=== PATIENT | female | born 2000 | race Caucasian/White ===

== ENCOUNTER 2020-08-03 10:39 | Emergency (ER) | payer OTHER, SELFPAY ==
--- NOTE | ~2020-08-03 | CT_ITS ---
EXAMINATION: CT BRAIN AND CT CERVICAL SPINE WITHOUT CONTRAST. CLINICAL INFORMATION: Lightheadedness. Status post syncope with head injuries. COMPARISON: None TECHNIQUE: 5 mm thin axial and reformatted 2 mm thin sagittal and coronal images of brain were obtained without contrast. Axial 3 mm thin and reformatted 2 mm thin sagittal and coronal images of cervical spine were obtained without contrast. DLP [id number] FINDINGS: Brain: There is no acute intra-axial, extra-axial bleed, masses or midline shift. There is no acute infarction in evolution. The lateral ventricles are symmetrical in size and configuration without enlargement. The spears to white matter differentiation is maintained normal. There is no edema. Bone windows reveal no calvarial abnormality. Bilateral paranasal sinuses and mastoid air cells are well-aerated. Cervical spine: There is mild straightening of cervical lordosis. The vertebral heights, alignment and disc heights are normal. The craniovertebral junction and the C1-C2 alignment is normal. There is no visible acute fracture, dislocation or subluxation seen. No visible acute fracture, dislocation or subluxation seen. The prevertebral and paravertebral soft tissues are normal. The central airway is widely patent. The lung apices are clear. The thyroid lobes are symmetrical and normal. Bilateral submandibular and parotid glands are symmetrical and normal. CT/CT head/brain wo con IMPRESSION: No acute intracranial process seen. No acute fracture or dislocation cervical spine. Reversal of cervical lordosis likely spasm or positional.
--- NOTE | ~2020-08-03 | CT_ITS ---
EXAMINATION: CT BRAIN AND CT CERVICAL SPINE WITHOUT CONTRAST. CLINICAL INFORMATION: Lightheadedness. Status post syncope with head injuries. COMPARISON: None TECHNIQUE: 5 mm thin axial and reformatted 2 mm thin sagittal and coronal images of brain were obtained without contrast. Axial 3 mm thin and reformatted 2 mm thin sagittal and coronal images of cervical spine were obtained without contrast. DLP [id number] FINDINGS: Brain: There is no acute intra-axial, extra-axial bleed, masses or midline shift. There is no acute infarction in evolution. The lateral ventricles are symmetrical in size and configuration without enlargement. The spears to white matter differentiation is maintained normal. There is no edema. Bone windows reveal no calvarial abnormality. Bilateral paranasal sinuses and mastoid air cells are well-aerated. Cervical spine: There is mild straightening of cervical lordosis. The vertebral heights, alignment and disc heights are normal. The craniovertebral junction and the C1-C2 alignment is normal. There is no visible acute fracture, dislocation or subluxation seen. No visible acute fracture, dislocation or subluxation seen. The prevertebral and paravertebral soft tissues are normal. The central airway is widely patent. The lung apices are clear. The thyroid lobes are symmetrical and normal. Bilateral submandibular and parotid glands are symmetrical and normal. CT/CT cervical spine wo con IMPRESSION: No acute intracranial process seen. No acute fracture or dislocation cervical spine. Reversal of cervical lordosis likely spasm or positional.
[2020-08-03 10:53] VITALS: BP 144/100; PULSE 104; O2SAT 98
--- NOTE | 2020-08-03 10:55 | ECG_ITS ---
Test Reason : SYNCOPE Blood Pressure : / mmHG Vent. Rate : 085 BPM Atrial Rate : 085 BPM P-R Int : 124 ms QRS Dur : 088 ms QT Int : 380 ms P-R-T Axes : 041 000 003 degrees QTc Int : 452 ms Normal sinus rhythm Minimal voltage criteria for LVH, may be normal variant Borderline ECG No previous ECGs available Referred By: Brenda Nolasco Electronically Signed By:Alistair Pearson
[2020-08-03 10:58] VITALS: BP 129/78; PULSE 89; RESP 16; TEMP 36.6; O2SAT 97; BMI 51.8
[2020-08-03 11:03] LABS: Glucose, Whole Blood 89 mg/dL (60-115)
[2020-08-03] MEDS: 0.9 % Sodium Chloride 1,000 ML 999 ML IVCONT (11:05)
[2020-08-03 12:03] LABS: MANUAL DIFF FLAG NO
[2020-08-03 12:05] LABS: Basophils Percent Auto 0.7 % (0-2); Eosinophils Absolute Auto 0.1 X10*3/uL (0.0-0.4); Eosinophils Percent Auto 1.5 % (0-4); Hemoglobin 11.6 g/dl (12.0-16.0); Imm Gran Abs Auto 0.01 X10*3/uL (0.00-0.03); Imm Gran Pct Auto 0.2 % (0.0-0.4); Lymphocytes Absolute Auto 1.2 X10*3/uL (1.2-4.9); Lymphocytes Percent Auto 19.5 % (20-40); Mean Corpuscular HGB Conc 32.2 g/dl (31.0-35.0); Mean Corpuscular Volume 77.6 fL (80-98); Mean Platelet Volume 10.1 fL (9.4-12.3); Monocytes Absolute Auto 0.3 X10*3/uL (0.1-1.2); Monocytes Percent Auto 5.2 % (2-11); Neutrophils Absolute Auto 4.5 X10*3/uL (2.0-8.3); Neutrophils Percent Auto 72.9 % (45-73); Platelet Count 287 X10*3/uL (160-400); Red Blood Count 4.64 X10*6/uL (4.20-5.50); Red Cell Distribution Width 14.4 % (11.0-16.0); White Blood Count 6.2 X10*3/uL (4.8-10.8)
[2020-08-03 12:11] LABS: INTERNATIONAL NORM RATIO 1.2 (0.9-1.1); Prothrombin Time 13.7 SEC (10.8-13.0)
[2020-08-03 12:14] LABS: Partial Thromboplastin Time 34.7 SEC (24.1-38.0)
[2020-08-03 12:29] LABS: Ethanol < 10 mg/dL
[2020-08-03 12:36] LABS: Alanine Aminotransferase 14 U/L (0-31); Alkaline Phosphatase 72 U/L (39-117); Anion Gap 10 (12-20); Aspartate Amino Transferase 13 U/L (5-31); Bilirubin Total 0.4 mg/dL (0.0-1.0); Blood Urea Nitrogen 6 mg/dL (9-16); Calcium 8.8 mg/dL (8.4-10.2); Carbon Dioxide 25 mmol/L (22-29); Chloride 108 mmol/L (96-108); Creatinine Clr Calc Pharmacy 169.6; Estimated Glomerular Filt Rate > 60; Glucose Random 84 mg/dL (60-115); Magnesium 1.9 mg/dL (1.6-2.6); Potassium 3.9 mmol/L (3.3-5.1); Sodium 139 mmol/L (135-145); Total Protein 6.8 g/dL (6.5-8.0)
[2020-08-03 12:39] LABS: Troponin-I High Sensitivity < 3.5 ng/L (<3.5-17.0)
[2020-08-03 12:40] LABS: HCG Quantitative < 2 mIU/mL; Influenza A PCR NEGATIVE (Negative); Influenza B PCR NEGATIVE (Negative); Resp Syncy Virus RNA Qual PCR NEGATIVE (Negative); SARS COV2 PCR INHOUSE NEGATIVE (Negative)
--- NOTE | 2020-08-03 12:48 | ED.SYNCOPE ---
HPI - Syncope General Chief Complaint: Syncope Stated Complaint: BAKER,CHEST TIGHTNESS Time Seen by Provider: 08/03/20 10:54 Source: patient and EMS Mode of arrival: EMS Limitations: no limitations History of Present Illness HPI narrative: 19-year-old female with a past medical history of migraine headaches presenting to the ED via EMS with C-collar in place after she had a unwitnessed syncopal episode while at home prior to arrival. Reports that when she woke up she felt lightheadedness/a headache to the frontal aspect of her head and she tried to pull through and continue her day although when she was about to walk out the door to go to work she passed out. She reports she is unsure how long she passed out although it was not witnessed. Then she reports she was able to crawl to her roommate store her roommate open his door and called EMS at that time. She reports that she usually leaves her house around 839. She reports that she continues to have the frontal headache/lightheadedness. Reports associated anterior midsternal chest pain. Reports neck pain. Denies any recent prior head injury, changes in vision, nausea/vomiting, shortness of breath, cough, dyspnea on exertion, orthopnea, lower extremity edema, palpitations, abdominal pain, dysuria, hematuria, black or bloody stools, back pain, recent illness, recent travel, sick contacts or any other symptoms complaints or concerns at this time. MD complaint: loss of consciousness and collapsed Onset (ago): minute(s) Prodromal symptoms: headache and lightheaded Witnessed: No Context: during exertion Injuries sustained associated with event: neck and head Current symptoms: headache and chest pain Treatments prior to arrival: none Related Data Allergies Allergy/AdvReac Type Severity Reaction Status Date / Time No Known Allergies Allergy Verified 08/03/20 10:54 Review of Systems Review of Systems: Constitutional : No Fever, No Chills, No Night Sweats, No Fatigue, No Malaise ENT/Mouth : No Ear Pain, No Nasal Congestion, No Sinus Pain, No sore throat, No Rhinorrhea Eyes: No Eye Pain, No Swelling, No Redness, No Foreign Body, No Discharge, No Vision Changes Cardiovascular : Positive Chest Pain, No SOB, No Dyspnea on Exertion, No Orthopnea, No Palpitations Respiratory : No Cough, No Sputum, No Wheezing, No Dyspnea Gastrointestinal : No Nausea, No Vomiting, No Diarrhea, No Constipation, No abdominal Pain, No Hematochezia, No Melena Genitourinary : No Dysuria, No Urinary Frequency, No Urinary Incontinence, No Urgency, No Flank Pain Musculoskeletal : No joint pain, No Myalgias Skin : No lacerations Neuro : Positive lightheadedness/headache/syncopal episode, No Focal weakness, no general weakness, No Numbness, No Paresthesias Yes all other systems are reviewed and are negative [facility] Past Medical History Attestation statement: The following information was validated with the patient. Medical History Migraine Social History Social History Advance Directives: Yes Advance Directives Information Provided: No Advance Directives on File: No Patient : No Physical Exam Vital Signs: Vital Signs: Last Vital Signs Temp 98 F 08/03/20 10:58 Pulse 89 08/03/20 10:58 Resp 16 08/03/20 10:58 BP 129/78 08/03/20 10:58 Pulse Ox 97 08/03/20 10:58 Body Mass Index 51.8 Vital signs have been reviewed as normal and appeared to be correct. Blood pressure normal. Heart rate normal. Respiration rate normal. Temperature normal. Oxygen saturation normal. Appearance: Alert. Oriented X3. No acute distress. Head: Normal external exam. Normocephalic. Atraumatic. Able to rotate head bilaterally. Eyes: PERRLA. EOMI. No nystagmus noted. Conjunctiva and sclera normal. Eyelids normal. Corneal reflex normal. ENT: EAC normal. TM's Normal. Hearing normal. Pharynx normal. Uvula midline. tongue midline. Moist mucous membranes. No trismus noted. No drooling noted. No muffled voice noted. No nystagmus noted. Neck: Normal inspection. Neck supple. FROM. No adenopathy. Trachea midline. Thyroid Normal. No meningeal signs. No neck mass noted. CVS: Normal heart rate and rhythm. Heart sound normal. No murmurs noted. Pulses normal throughout. Respiratory: No respiratory distress. Painless inspiration. Breath sounds normal. No wheezes/rales/rhonchi noted. Chest nontender. No accessory muscle usage noted or decreased air movement noted. Abdomen: Soft and nontender. Bowel sounds normal in all 4 quadrants. No distention noted. No organomegaly noted. No visible injury noted. Back: No CVA tenderness. Full range of motion noted. Skin: Skin warm and dry. Normal skin color. Normal skin turgor. No rashes/lesions/lacerations noted. Extremities: No lower extremity edema. Extremities exhibit normal range of motion. Extremities nontender. Able to shrug shoulders bilaterally and keep up against resistance. Neuro: Oriented X 3. No motor deficit. No sensory deficit. Reflexes normal. Moving all extremities. No focal motor deficits. Cranial nerves II-XI intact bilaterally. Facial strength normal. Normal cognition. Speech normal. Gait normal. Strength 5/5 throughout. No pronator drift. No tremor noted. No fasciculations noted. No rigidity noted. Muscle tone normal throughout. No asterixis noted. [id number] test normal. Heel to byrd test normal. Tandem gait normal. Does not sway with eyes open. Romberg test negative. Rapid alternating movement upper extremity normal. Rapid alternating movement lower extremity normal. Hand drop from overhead Misses face. NIHSS score 0. Course Course Course Narrative: 14:15pm - labs reviewed and patient mild anemia otherwise all other labs are within normal limits. Serum quant negative for . Patient negative for EtOH. Negative for COVID/RSV/flu. CT scan of brain/cervical spine within normal limits no acute processes are noted. EKG normal sinus rhythm no acute ischemic changes were noted. - I removed the C-collar and they came to do the chest x-ray although patient refused she reports she does not want any further evaluation or treatment she also reported she does not want to be admitted. She reports that she feels worse she will come back that she believes she might have had a panic attack with a migraine headache that she has had this in the past. Mother at bedside. Therefore will DC home with instructions to return if any new or worsening symptoms follow-up with Neurology and to follow-up with PCP. Patient understands agrees with this plan. MDM - Syncope MDM Narrative Medical decision making narrative: 10:55am - 19-year-old female with a past medical history of migraine headaches presenting to the ED via EMS with C-collar in place after she had a unwitnessed syncopal episode while at home prior to arrival. Reports associated frontal headache/lightheadedness and anterior chest pain. - On exam patient is alert and oriented x3. Not in any acute distress. Vital signs are stable within normal limits. No focal neuro deficits are noted. NIH SS score 0. Not a tPA candidate due to non disabling symptoms. Lungs clear to auscultation. CV RRR. Abdomen soft and nontender. Plan: Labs, CT scan of brain/cervical spine, chest x-ray, EKG, point of care, orthostatic vitals, UA provide a L of IV fluids and re-evaluate. Medical Records Attestation: I reviewed the patient's medical records. Lab Data Attestation: I reviewed the patient's lab results. Result diagrams: 08/03/20 11:55 08/03/20 11:55 Labs: Lab Results 08/03/20 08/03/20 08/03/20 Range/Units 11:00 11:55 11:55 WBC 6.2 (4.8-10.8) X10*3/uL RBC 4.64 (4.20-5.50) X10*6/uL Hgb 11.6 L (12.0-16.0) g/dl Hct 36.0 L (37-47) % MCV 77.6 L (80-98) fL MCH 25.0 L (27.0-33.0) pg MCHC 32.2 (31.0-35.0) g/dl RDW 14.4 (11.0-16.0) % Plt Count 287 (160-400) X10*3/uL MPV 10.1 (9.4-12.3) fL Immature Gran % (Auto) 0.2 (0.0-0.4) % Neut % (Auto) 72.9 (45-73) % Lymph % (Auto) 19.5 L (20-40) % [place] % (Auto) 5.2 (2-11) % Eos % (Auto) 1.5 (0-4) % Baso % (Auto) 0.7 (0-2) % Lymph # (Auto) 1.2 (1.2-4.9) X10*3/uL [place] # (Auto) 0.3 (0.1-1.2) X10*3/uL Eos # (Auto) 0.1 (0.0-0.4) X10*3/uL Baso # (Auto) 0.0 (0.0-0.2) X10*3/uL Abs Immat Gran (auto) 0.01 (0.00-0.03) X10*3/uL Absolute Neuts (auto) 4.5 (2.0-8.3) X10*3/uL Absolute Nucleated RBC 0.000 (0.0-0.012) X10*3/uL Nucleated RBC % (auto) 0.0 (0.0-0.2) /100WBC PT (10.8-13.0) SEC INR (0.9-1.1) APTT (24.1-38.0) SEC Sodium (135-145) mmol/L Potassium (3.3-5.1) mmol/L Chloride (96-108) mmol/L Carbon Dioxide (22-29) mmol/L Anion Gap (12-20) BUN (9-16) mg/dL Creatinine (0.5-1.4) mg/dL Estim Creat Clear Calc Estimated GFR POC Glucose 89 (60-115) mg/dL Random Glucose (60-115) mg/dL Calcium (8.4-10.2) mg/dL Magnesium (1.6-2.6) mg/dL Total Bilirubin (0.0-1.0) mg/dL AST (5-31) U/L ALT (0-31) U/L Alkaline Phosphatase (39-117) U/L Troponin I High Sens (<3.5-17.0) ng/L Total Protein (6.5-8.0) g/dL Albumin (3.5-5.0) g/dL TSH 0.61 (0.32-4.0) uIU/mL Beta HCG, Quant mIU/mL Ethyl Alcohol mg/dL Coronavirus (PCR) (Negative) Influenza Type A (PCR) (Negative) Influenza Type B (PCR) (Negative) RSV RNA Qual (PCR) (Negative) 08/03/20 08/03/20 08/03/20 Range/Units 11:55 11:55 11:55 WBC (4.8-10.8) X10*3/uL RBC (4.20-5.50) X10*6/uL Hgb (12.0-16.0) g/dl Hct (37-47) % MCV (80-98) fL MCH (27.0-33.0) pg MCHC (31.0-35.0) g/dl RDW (11.0-16.0) % Plt Count (160-400) X10*3/uL MPV (9.4-12.3) fL Immature Gran % (Auto) (0.0-0.4) % Neut % (Auto) (45-73) % Lymph % (Auto) (20-40) % [place] % (Auto) (2-11) % Eos % (Auto) (0-4) % Baso % (Auto) (0-2) % Lymph # (Auto) (1.2-4.9) X10*3/uL [place] # (Auto) (0.1-1.2) X10*3/uL Eos # (Auto) (0.0-0.4) X10*3/uL Baso # (Auto) (0.0-0.2) X10*3/uL Abs Immat Gran (auto) (0.00-0.03) X10*3/uL Absolute Neuts (auto) (2.0-8.3) X10*3/uL Absolute Nucleated RBC (0.0-0.012) X10*3/uL Nucleated RBC % (auto) (0.0-0.2) /100WBC PT 13.7 H (10.8-13.0) SEC INR 1.2 H (0.9-1.1) APTT 34.7 (24.1-38.0) SEC Sodium 139 (135-145) mmol/L Potassium 3.9 (3.3-5.1) mmol/L Chloride 108 (96-108) mmol/L Carbon Dioxide 25 (22-29) mmol/L Anion Gap 10 L (12-20) BUN 6 L (9-16) mg/dL Creatinine 0.65 (0.5-1.4) mg/dL Estim Creat Clear Calc 169.6 Estimated GFR > 60 POC Glucose (60-115) mg/dL Random Glucose 84 (60-115) mg/dL Calcium 8.8 (8.4-10.2) mg/dL Magnesium 1.9 (1.6-2.6) mg/dL Total Bilirubin 0.4 (0.0-1.0) mg/dL AST 13 (5-31) U/L ALT 14 (0-31) U/L Alkaline Phosphatase 72 (39-117) U/L Troponin I High Sens < 3.5 (<3.5-17.0) ng/L Total Protein 6.8 (6.5-8.0) g/dL Albumin 4.0 (3.5-5.0) g/dL TSH (0.32-4.0) uIU/mL Beta HCG, Quant < 2 mIU/mL Ethyl Alcohol mg/dL Coronavirus (PCR) (Negative) Influenza Type A (PCR) (Negative) Influenza Type B (PCR) (Negative) RSV RNA Qual (PCR) (Negative) 08/03/20 08/03/20 Range/Units 11:55 11:55 WBC (4.8-10.8) X10*3/uL RBC (4.20-5.50) X10*6/uL Hgb (12.0-16.0) g/dl Hct (37-47) % MCV (80-98) fL MCH (27.0-33.0) pg MCHC (31.0-35.0) g/dl RDW (11.0-16.0) % Plt Count (160-400) X10*3/uL MPV (9.4-12.3) fL Immature Gran % (Auto) (0.0-0.4) % Neut % (Auto) (45-73) % Lymph % (Auto) (20-40) % [place] % (Auto) (2-11) % Eos % (Auto) (0-4) % Baso % (Auto) (0-2) % Lymph # (Auto) (1.2-4.9) X10*3/uL [place] # (Auto) (0.1-1.2) X10*3/uL Eos # (Auto) (0.0-0.4) X10*3/uL Baso # (Auto) (0.0-0.2) X10*3/uL Abs Immat Gran (auto) (0.00-0.03) X10*3/uL Absolute Neuts (auto) (2.0-8.3) X10*3/uL Absolute Nucleated RBC (0.0-0.012) X10*3/uL Nucleated RBC % (auto) (0.0-0.2) /100WBC PT (10.8-13.0) SEC INR (0.9-1.1) APTT (24.1-38.0) SEC Sodium (135-145) mmol/L Potassium (3.3-5.1) mmol/L Chloride (96-108) mmol/L Carbon Dioxide (22-29) mmol/L Anion Gap (12-20) BUN (9-16) mg/dL Creatinine (0.5-1.4) mg/dL Estim Creat Clear Calc Estimated GFR POC Glucose (60-115) mg/dL Random Glucose (60-115) mg/dL Calcium (8.4-10.2) mg/dL Magnesium (1.6-2.6) mg/dL Total Bilirubin (0.0-1.0) mg/dL AST (5-31) U/L ALT (0-31) U/L Alkaline Phosphatase (39-117) U/L Troponin I High Sens (<3.5-17.0) ng/L Total Protein (6.5-8.0) g/dL Albumin (3.5-5.0) g/dL TSH (0.32-4.0) uIU/mL Beta HCG, Quant mIU/mL Ethyl Alcohol < 10 mg/dL Coronavirus (PCR) NEGATIVE (Negative) Influenza Type A (PCR) NEGATIVE (Negative) Influenza Type B (PCR) NEGATIVE (Negative) RSV RNA Qual (PCR) NEGATIVE (Negative) Imaging Data CT scan of brain/cervical spine: Attestation: I personally reviewed and interpreted this imaging study as follows: Radiologist's impression: FINDINGS: Brain: There is no acute intra-axial, extra-axial bleed, masses or midline shift. There is no acute infarction in evolution. The lateral ventricles are symmetrical in size and configuration without enlargement. The spears to white matter differentiation is maintained normal. There is no edema. Bone windows reveal no calvarial abnormality. Bilateral paranasal sinuses and mastoid air cells are well-aerated. Cervical spine: There is mild straightening of cervical lordosis. The vertebral heights, alignment and disc heights are normal. The craniovertebral junction and the C1-C2 alignment is normal. There is no visible acute fracture, dislocation or subluxation seen. No visible acute fracture, dislocation or subluxation seen. The prevertebral and paravertebral soft tissues are normal. The central airway is widely patent. The lung apices are clear. The thyroid lobes are symmetrical and normal. Bilateral submandibular and parotid glands are symmetrical and normal. CT/CT head/brain wo con IMPRESSION: No acute intracranial process seen. No acute fracture or dislocation cervical spine. Reversal of cervical lordosis likely spasm or positional. ECG Data Attestation: I personally reviewed and interpreted this ECG as follows: ECG interpretation date: 08/03/20 ECG interpretation time: 11:07 Interpretation: Normal sinus rhythm with ventricular rate of 85 with minimal voltage criteria for LVH normal QRS normal QT/QTC interval. No acute ischemic changes are noted. No prior EKGs in our system to compare to at this time. Critical Care Time Critical Care Time Critical Care Time: Yes Total Critical Care Time: 60 Attestation: I personally attest to this time spent taking care of the patient Discharge Plan Discharge Clinical Impression: Migraine, Episode of syncope Patient Disposition: Home, Self-Care Instructions: Syncope (ED) Referrals: Cedrick Lima MD [Physician] - 2 days Stand Alone Forms: Work/School Release Print Language: [place]
[2020-08-03 12:56] LABS: Thyroid Stimulating Hormone 0.61 uIU/mL (0.32-4.0)
== END 2020-08-03 14:32 | disposition home or self-care (01) ==
PROVIDERS: Physician Assistant Medical; Emergency Provider Emergency Medicine
DX: G43.909 Migraine, unspecified, not intractable, without status migrainosus (principal); R55 Syncope and collapse; Z20.822 Contact with and (suspected) exposure to COVID-19; D64.9 Anemia, unspecified; R07.9 Chest pain, unspecified
CPT/HCPCS: 0241U; 36415; 70450; 72125; 80053; 82077; 82947; 83735; 84443; 84484; 84702; 85025; 85610; 85730; 93005; 96360; 96361; 99283; 99291

== ENCOUNTER 2021-08-18 23:17 | Emergency (ER) | payer OTHER, SELFPAY ==
--- NOTE | ~2021-08-18 | CT_ITS ---
EXAMINATION: CT CERVICAL SPINE WITHOUT CONTRAST CLINICAL INFORMATION: Swelling cervicothoracic junction COMPARISON: 08/03/2020 TECHNIQUE: Multidetector CT imaging of the cervical spine was performed without the use of intravenous contrast. Multiplanar reformats created on an independent workstation were reviewed. This CT examination was performed using dose optimization techniques as appropriate, variously including the following: *Automated exposure control *Adjustment of mA and/or kV according to patient size (this includes techniques or standardized protocols for targeted exams where dose is matched to indication/reason for exam; i.e. extremities or head) *Use of iterative reconstruction technique DLP: 1343 mGy-cm. FINDINGS: Atlantooccipital alignment is maintained. The vertebral bodies and posterior elements align normally, apart from mild straightening of the cervical spine which may be related to positioning or muscle spasm. No acute fracture or subluxation. Vertebral body heights and intervertebral disc spaces are preserved. No significant degenerative changes are appreciated. No central canal or foraminal narrowing. The cervicomedullary junction and spinal cord are grossly unremarkable. The paraspinal soft tissues are unremarkable. The imaged lung apices are clear. CT/CT cervical spine wo con IMPRESSION: No fractures or subluxations. Normal appearance of the cervical spine
[2021-08-19 00:23] VITALS: BP 132/73; PULSE 82; RESP 16; TEMP 37; O2SAT 98; BMI 52.1
--- NOTE | 2021-08-19 01:17 | ED_ITS ---
HPI - General Adult General Chief complaint: Neck Pain/Injury Stated complaint: painful & tingling lump on back of neck Time Seen by Provider: 08/19/21 01:07 Source: patient History of Present Illness [facility] narrative: This is a 20-year-old female who was noted in lump on the back of her neck for some weeks. The patient saw her primary care physician who stated nothing to be worried about. Patient has more recently had increasing discomfort to the area and notes tingling upper neck and to her upper back. She denies any fever. She sometimes has headaches. She denies any chest pain or shortness of breath. She denies any use of prednisone or other steroid medicines Related Data Allergies Allergy/AdvReac Type Severity Reaction Status Date / Time No Known Allergies Allergy Verified 08/19/21 00:26 Review of Systems Review of Systems: As per [facility] Past Medical History Medical History Migraine Social History Social History Advance Directives: No Advance Directives Information Provided: Yes Physical Exam ED Vital Signs: Vital Signs - 24 hr 08/19/21 00:23 08/19/21 02:38 Temperature 98.6 F Pulse Rate 82 82 Respiratory Rate 16 20 Blood Pressure 132/73 129/74 Pulse Oximetry 98 97 Oxygen Delivery Method Room Air Room Air BMI result Body Mass Index 52.1 Const Other: Moderately obese Neck Other: Base of the neck at the junction between the cervical and thoracic spine with soft tissue prominence in the midline. No erythema or induration. Area seems to be tender. By palpation, feels like a possible lipoma, versus prominent fat and somewhat obese patient. Medical Decision Making [facility] Narrative Medical decision making narrative: Obese 20-year-old female, felt a ?lump? at the base of her neck posteriorly. Distinct area of fatty prominence evident however this appeared likely due to obesity, did not appear to be a lipoma or mass. No clinical evidence of abscess. Patient noted paresthesias associated with this ?lump?. Though I did not have any high suspicion for concerning pathology, cervical spine CT to examine the soft tissues posteriorly down to hip her thoracic spine was done and showed no concerning findings. The patient was reassured. Imaging Data CT cervical spine: Radiologist's impression: IMPRESSION: No fractures or subluxations. Normal appearance of the cervical spine? Discharge Plan Discharge Clinical Impression: Neck pain, Paresthesias Patient Disposition: Home, Self-Care Instructions: Paresthesia (ED), Neck Pain (ED) Additional Instructions: Follow-up with her primary care physician. I did not find any concerning mass or swelling in the area of concern on exam, and CT scan did not show any concerning findings. Discharge Date/Time: 08/19/21 02:59
[2021-08-19 02:38] VITALS: BP 129/74; PULSE 82; RESP 20; O2SAT 97
== END 2021-08-19 02:59 | disposition home or self-care (01) ==
PROVIDERS: Emergency Provider Emergency Medicine; PCP Internal Medicine
DX: M54.2 Cervicalgia (principal); R20.2 Paresthesia of skin
CPT/HCPCS: 72125; 99282; 99284

== ENCOUNTER 2022-01-20 20:55 | Emergency (ER) | payer OTHER, SELFPAY ==
[2022-01-20 20:57] VITALS: BP 137/64; PULSE 98; RESP 18; TEMP 36.4; O2SAT 100; BMI 47.5
--- NOTE | 2022-01-21 00:15 | PC.NURSE ---
Pt stated she felt fine after PO challenge and that she needed to leave as she was dependent on a car ride. This nurse assured her that the provider would be coming back to follow up, but pt stated she couldn't wait much longer. Upon returning to pt's rm, it was clear that pt had left without provider being able to follow up. To be sure provider was found and confirmed that pt was no longer in the room when he went to follow up.
--- NOTE | 2022-01-21 00:44 | ED.GENADULT ---
HPI - General Adult General Chief complaint: General Medical Stated complaint: chest pain, food stuck Time Seen by Provider: 01/20/22 22:50 Source: patient Mode of arrival: ambulatory Limitations: no limitations History of Present Illness HPI narrative: 21-year-old female presents to ED for sensation of food stuck in the throat. Patient states history of food stuck in her throat in the past has been evaluated by Gastroenterology with the endoscope. Patient states she ate some chicken which she swallowed fine then she had large rice and then started having choking sensation. Patient states when she swallows she feels something stuck in her throat goint her chest. Patient states she was able to swallow much food after. Patient the past states when this happened she drinks water and improved but this time it did not happen. Patient denies any chest pain or shortness of breath Related Data Allergies Allergy/AdvReac Type Severity Reaction Status Date / Time No Known Allergies Allergy Verified 08/19/21 00:26 Review of Systems Review of Systems: Sensation of right/food stuck in throat Yes all other systems are reviewed and are negative PMFSH Past Medical History Medical History Migraine Social History Social History Advance Directives: No Advance Directives Information Provided: No Physical Exam ED Vital Signs: Vital Signs - 24 hr 01/20/22 20:57 Temperature 97.5 F Pulse Rate 98 Respiratory Rate 18 Blood Pressure 137/64 Pulse Oximetry 100 Oxygen Delivery Method Room Air BMI result Body Mass Index 47.5 Const General: cooperative, healthy appearing, comfortable, no acute distress, well developed, alert, awake and Physically active Orientation/consciousness: oriented to time and patient oriented x3 HENMT Other: Patient speaking in full sentences. Negative for any drooling. Negative for vomiting. Negative for change in voice Head: Yes normal to inspection, Yes No palpable skull fracture present, Yes normocephalic, Yes atraumatic and No abrasion Throat: Yes posterior oropharynx normal, Yes tonsils normal and Yes uvula midline Eyes General: appearance normal, both eyes and all related structures Neck Neck: Yes normal visual inspection, Yes full ROM, Yes no lymphadenopathy, Yes no meningeal signs, Yes trachea midline, Yes supple, No anterior neck swelling and No tender Chest Chest palpation & inspection: normal inspection of the chest and normal palpation of entire chest wall Resp Effort & Inspection: normal respiratory effort and able to speak in complete sentences Auscultation: clear to auscultation bilaterally Cardio Jugular venous distension: no JVD Heart sounds: S1 normal heart sound present and S2 normal heart sound present GI Inspection: Yes normal to inspection and No abdominal wall ecchymosis Palpation (GI): Soft to palpation, not firm, nontender, no guarding and not rigid General: No CVA tenderness and Yes no CVA tenderness Back/Spine/Pelvis Back: no CVA tenderness, No CVA tenderness and No back tenderness Skin General skin exam: no rashes or lesions noted and elasticity normal Neuro General: oriented to time, patient oriented x3, gait normal, no meningeal signs and CN's II-XI intact bilaterally Cranial nerves: Yes CN's II-XII intact bilaterally Extrem General: Yes normal to inspection and Yes full ROM Psych Appearance: grossly normal, well kempt and not disheveled Course Course Course Narrative: Patient well-appearing. Patient speaking in full sentences. Patient not using accessory muscles. Will do p.o. challenge. Patient given crackers and 2 bottles of gin drip Reevaluation(s) Reevaluation #1: Nurse Jocelyn informed me that patient eloped from the ER. She states patient informed her she feels better and patient drank 2 cans of chilango rale and 3 bags of crackers. Time: 00:53 indegestion Discharge Plan Discharge Clinical Impression: Indigestion Patient Disposition: Elopement Instructions: Indigestion (ED)
== END 2022-01-21 02:26 | disposition left against medical advice (07) ==
PROVIDERS: Emergency Provider Internal Medicine
DX: R07.89 Other chest pain (principal); R09.89 Other specified symptoms and signs involving the circulatory and respiratory systems
CPT/HCPCS: 99282; 99283

== ENCOUNTER 2022-06-15 11:40 | Emergency (ER) | payer OTHER, SELFPAY ==
[2022-06-15] VITALS (7 sets, daily range): BP systolic 107–151; BP diastolic 66–94; PULSE 107–130; RESP 15–18; TEMP 37.2–39.1; O2SAT 97–100; BMI 47.8
--- NOTE | ~2022-06-15 | XR_ITS ---
EXAMINATION: XR CHEST CLINICAL INFORMATION: Fever COMPARISON: None available. TECHNIQUE: Frontal view of the chest was obtained. FINDINGS: Mild right basilar opacity may represent a small area of atelectasis or infiltrate. Left lung is clear. There is no failure. No effusion. The cardiac silhouette is within normal limits. XR/XR chest 1V IMPRESSION: Mild right basilar opacities
--- NOTE | ~2022-06-15 | CT_ITS ---
EXAM: CT HEAD WITHOUT CONTRAST CT CERVICAL SPINE INDICATION: Reason for Exam syncope head pain TECHNIQUE: A noncontrast CT scan was performed from the skull base to the vertex. A noncontrast CT scan of the cervical spine was performed from the base of the skull through T1 at 2.5 mm and 0.625 mm collimation. Coronal and sagittal reformats were obtained at the acquisition workstation. This CT examination was performed using dose optimization techniques as appropriate, variously including the following: * Automated exposure control * Adjustment of mA and/or kV according to patient size (this includes techniques or standardized protocols for targeted exams where dose is matched to indication/reason for exam; i.e. extremities or head) * Use of iterative reconstruction technique Dose length product is 1520 mGy-cm. COMPARISON: CT cervical spine 08/19/[address] head 08/03/2020 FINDINGS: Head: There is no evidence of acute intracranial hemorrhage or territorial infarction. No abnormal mass effect or midline shift is seen. Moon to white matter differentiation is well preserved. No extra-axial fluid collections are identified. The ventricles are normal in size. No abnormal attenuation in the brain parenchyma. No acute calvarial fracture.. Prominent opacification right maxillary sinus. Partial opacification ethmoid, left maxillary sinuses. Mastoid air cells are well-aerated. Cervical Spine: The atlantooccipital and atlantoaxial articulations remain well aligned. Straightening of the normal cervical lordosis. Otherwise, there is anatomic alignment of the vertebral bodies and posterior elements. No visible acute fracture or subluxation is seen.. The vertebral body heights are maintained. Disc spaces relatively maintained. No prevertebral soft tissue swelling. The paraspinal soft tissues are unremarkable. No suspicious thyroid findings.. The visualized lung apices are clear. CT/CT cervical spine wo IV con IMPRESSION: No CT evidence of acute intracranial hemorrhage or edematous territorial infarction. No visible acute fracture or subluxation the cervical spine..
--- NOTE | 2022-06-15 11:48 | ECG_ITS ---
Test Reason : CHEST PAIN Blood Pressure : / mmHG Vent. Rate : 107 BPM Atrial Rate : 107 BPM P-R Int : 140 ms QRS Dur : 078 ms QT Int : 316 ms P-R-T Axes : 030 -02 -12 degrees QTc Int : 421 ms Sinus tachycardia Minimal voltage criteria for LVH, may be normal variant ( R in aVL ) Nonspecific T wave abnormality Abnormal ECG When compared with ECG of 03-AUG-2020 11:07, No significant change was found Referred By: Jones David Electronically Signed By:LISETTE SPARROW MD
--- NOTE | 2022-06-15 11:50 | ED.SYNCOPE ---
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 MD complaint: loss of consciousness Onset (ago): hour(s) (1) Prodromal symptoms: nausea/vomiting Witnessed: No Context: at rest Related Data Allergies Allergy/AdvReac Type Severity Reaction Status Date / Time No Known Allergies Allergy Verified 08/19/21 00:26 Review of Systems Constitutional: Constitutional: Reports no additional constitutional complaints ENT: Reports system reviewed and no additional complaints, except as documented Cardiovascular: Cardiovascular: Reports no additional cardiovascular complaints Respiratory: Respiratory: Reports no additional respiratory complaints [facility] Past Medical History [facility] Narrative: denies Medical History Migraine Social History Social History Advance Directives: No Advance Directives Information Provided: Yes Physical Exam Vital Signs: Vital Signs: Last Vital Signs Temp 99.6 F 06/15/22 16:09 Pulse 130 H 06/15/22 16:09 Resp 15 06/15/22 16:09 BP 132/87 06/15/22 16:09 Pulse Ox 97 06/15/22 16:09 O2 Del Method Room Air 06/15/22 16:09 BMI result Body Mass Index 47.8 Const: General: cooperative Nutritional Appearance: well nourished HEENT: Head: Yes normal to inspection General nose exam: Normal external nose present Face and sinus: Yes normal facial exam Mouth: Normal oral and palatal mucosa present Throat: Yes posterior oropharynx normal Neck: Neck: Yes normal visual inspection Chest: Chest palpation & inspection: normal inspection of the chest Resp: Effort & Inspection: normal respiratory effort Auscultation: clear to auscultation bilaterally Cardio: Jugular venous distension: no JVD Rate: regular rate Rhythm: regular rhythm GI: Inspection: Yes normal to inspection Palpation (GI): Soft to palpation Auscultation: normal bowel sounds Skin: General skin exam: no rashes or lesions noted Lesions: no lesions Rashes: no rashes Extrem: General: Yes normal to inspection, Yes full ROM and Yes capillary refill normal Course Reevaluation(s) Reevaluation #1: feeling dizzy laurie give fluids Time: 15:55 Reevaluation #2: Signed out to Dr Garcia off shift now, Time: 16:57 Medications Administered Generic Name Dose Route Start Last Admin Trade Name Freq PRN Reason Stop Dose Admin Sodium Chloride 1,000 mls @ 999 mls/hr 06/15/22 16:00 06/15/22 16:13 Ns IVCONT 06/15/22 17:00 999 mls/hr .Q1H1M ILDA Administration Discontinued Medications Generic Name Dose Route Start Last Admin Trade Name Freq PRN Reason Stop Dose Admin Sodium Chloride 1,000 mls @ 999 mls/hr 06/15/22 12:15 06/15/22 16:14 Ns IVCONT 06/15/22 13:15 Infused .Q1H1M ILDA Infusion Ibuprofen 800 mg 06/15/22 16:19 06/15/22 16:23 Ibuprofen 800 Mg Tablet PO 06/15/22 16:20 800 mg ONCE ONE Administration Lorazepam 0.5 mg 06/15/22 16:20 06/15/22 16:24 Lorazepam 0.5 Mg Tablet PO 06/15/22 16:21 0.5 mg ONCE ONE Administration Medical Decision Making Medical Decision Making [facility] Narrative: Patient presented with syncopal episode with going to do EKG labs and reassess Differential Diagnosis Differential Diagnoses: The differential diagnosis associated with the presentation includes Vasovagal episode the/arrhythmia Admission/Observation Consideration of admission/observation: Escalation of care including admission/observation considered Lab Data [facility] Lab Attestation statement: I reviewed the patient's lab results. 06/15/22 12:44 06/15/22 12:44 Labs: Lab Results 06/15/22 06/15/22 06/15/22 Range/Units 12:41 12:41 12:44 WBC 9.5 (4.8-10.8) X10*3/uL RBC 4.53 (4.20-5.50) X10*6/uL Hgb 11.2 L (12.0-16.0) g/dl Hct 35.2 L (37.0-47.0) % MCV 77.7 L (80.0-98.0) fL MCH 24.7 L (27.0-33.0) pg MCHC 31.8 (31.0-35.0) g/dl RDW 15.8 (11.0-16.0) % Plt Count 243 (160-400) X10*3/uL MPV 10.7 (9.4-12.3) fL Immature Gran % (Auto) 0.4 (0.0-0.4) % Neut % (Auto) 85.2 H (45-73) % Lymph % (Auto) 7.7 L (20-40) % [place] % (Auto) 6.2 (2-11) % Eos % (Auto) 0.1 (0-4) % Baso % (Auto) 0.4 (0-2) % Lymph # (Auto) 0.7 L (1.2-4.9) X10*3/uL [place] # (Auto) 0.6 (0.1-1.2) X10*3/uL Eos # (Auto) 0.0 (0.0-0.4) X10*3/uL Baso # (Auto) 0.0 (0.0-0.2) X10*3/uL Abs Immat Gran (auto) 0.04 H (0.00-0.03) X10*3/uL Absolute Neuts (auto) 8.1 (2.0-8.3) x10*3/uL Absolute Nucleated RBC 0.000 (0.0-0.012) X10*3/uL Nucleated RBC % (auto) 0.0 (0.0-0.2) /100WBC Sodium (135-145) mmol/L Potassium (3.3-5.1) mmol/L Chloride (96-108) mmol/L Carbon Dioxide (22-29) mmol/L Anion Gap (12-20) BUN (9-16) mg/dL Creatinine (0.5-1.4) mg/dL Estim Creat Clear Calc Estimated GFR Random Glucose (60-115) mg/dL Calcium (8.4-10.2) mg/dL Total Bilirubin (0.0-1.0) mg/dL AST (5-31) U/L ALT (0-31) U/L Alkaline Phosphatase (39-117) U/L Troponin I High Sens < 2.7 (<3.5-17.0) ng/L Total Protein (6.5-8.0) g/dL Albumin (3.5-5.0) g/dL Beta HCG, Quant mIU/mL Influenza Type A (PCR) NEGATIVE (Negative) Influenza Type B (PCR) NEGATIVE (Negative) RSV RNA Qual (PCR) NEGATIVE (Negative) SARS-CoV-2 RNA (RT-PCR) NEGATIVE (Negative) 06/15/22 Range/Units 12:44 WBC (4.8-10.8) X10*3/uL RBC (4.20-5.50) X10*6/uL Hgb (12.0-16.0) g/dl Hct (37.0-47.0) % MCV (80.0-98.0) fL MCH (27.0-33.0) pg MCHC (31.0-35.0) g/dl RDW (11.0-16.0) % Plt Count (160-400) X10*3/uL MPV (9.4-12.3) fL Immature Gran % (Auto) (0.0-0.4) % Neut % (Auto) (45-73) % Lymph % (Auto) (20-40) % [place] % (Auto) (2-11) % Eos % (Auto) (0-4) % Baso % (Auto) (0-2) % Lymph # (Auto) (1.2-4.9) X10*3/uL [place] # (Auto) (0.1-1.2) X10*3/uL Eos # (Auto) (0.0-0.4) X10*3/uL Baso # (Auto) (0.0-0.2) X10*3/uL Abs Immat Gran (auto) (0.00-0.03) X10*3/uL Absolute Neuts (auto) (2.0-8.3) x10*3/uL Absolute Nucleated RBC (0.0-0.012) X10*3/uL Nucleated RBC % (auto) (0.0-0.2) /100WBC Sodium 137 (135-145) mmol/L Potassium 3.4 (3.3-5.1) mmol/L Chloride 107 (96-108) mmol/L Carbon Dioxide 22 (22-29) mmol/L Anion Gap 11 L (12-20) BUN 5 L (9-16) mg/dL Creatinine 0.86 (0.5-1.4) mg/dL Estim Creat Clear Calc 129.1 Estimated GFR > 60 Random Glucose 86 (60-115) mg/dL Calcium 8.5 (8.4-10.2) mg/dL Total Bilirubin 0.7 (0.0-1.0) mg/dL AST 13 (5-31) U/L ALT 13 (0-31) U/L Alkaline Phosphatase 66 (39-117) U/L Troponin I High Sens (<3.5-17.0) ng/L Total Protein 6.7 (6.5-8.0) g/dL Albumin 4.0 (3.5-5.0) g/dL Beta HCG, Quant < 2 mIU/mL Influenza Type A (PCR) (Negative) Influenza Type B (PCR) (Negative) RSV RNA Qual (PCR) (Negative) SARS-CoV-2 RNA (RT-PCR) (Negative) Independent Interpretation I performed an independent interpretation of an: EKG Interpretation: nsr 107 no ischemia Discharge Plan Discharge Clinical Impression: Vasovagal syncope, Dizziness Patient Disposition: Still a Patient
[2022-06-15 12:55] LABS: MANUAL DIFF FLAG NO
[2022-06-15] MEDS: 0.9 % Sodium Chloride 1,000 ML 999 ML IVCONT ×2 (12:59→16:13)
[2022-06-15 13:13] LABS: Troponin-I High Sensitivity < 2.7 ng/L (<3.5-17.0)
[2022-06-15 13:14] LABS: Basophils Percent Auto 0.4 % (0-2); Eosinophils Percent Auto 0.1 % (0-4); Hematocrit 35.2 % (37.0-47.0); Hemoglobin 11.2 g/dl (12.0-16.0); Imm Gran Abs Auto 0.04 X10*3/uL (0.00-0.03); Imm Gran Pct Auto 0.4 % (0.0-0.4); Lymphocytes Absolute Auto 0.7 X10*3/uL (1.2-4.9); Lymphocytes Percent Auto 7.7 % (20-40); Mean Corpuscular HGB Conc 31.8 g/dl (31.0-35.0); Mean Corpuscular Hemoglobin 24.7 pg (27.0-33.0); Mean Corpuscular Volume 77.7 fL (80.0-98.0); Mean Platelet Volume 10.7 fL (9.4-12.3); Monocytes Absolute Auto 0.6 X10*3/uL (0.1-1.2); Monocytes Percent Auto 6.2 % (2-11); Neutrophils Absolute Auto 8.1 x10*3/uL (2.0-8.3); Neutrophils Percent Auto 85.2 % (45-73); Platelet Count 243 X10*3/uL (160-400); Red Blood Count 4.53 X10*6/uL (4.20-5.50); Red Cell Distribution Width 15.8 % (11.0-16.0); White Blood Count 9.5 X10*3/uL (4.8-10.8)
[2022-06-15 13:19] LABS: Alanine Aminotransferase 13 U/L (0-31); Alkaline Phosphatase 66 U/L (39-117); Anion Gap 11 (12-20); Aspartate Amino Transferase 13 U/L (5-31); Bilirubin Total 0.7 mg/dL (0.0-1.0); Blood Urea Nitrogen 5 mg/dL (9-16); Calcium 8.5 mg/dL (8.4-10.2); Carbon Dioxide 22 mmol/L (22-29); Chloride 107 mmol/L (96-108); Creatinine Clr Calc Pharmacy 129.1; Estimated Glomerular Filt Rate > 60; Glucose Random 86 mg/dL (60-115); HCG Quantitative < 2 mIU/mL; Potassium 3.4 mmol/L (3.3-5.1); Sodium 137 mmol/L (135-145); Total Protein 6.7 g/dL (6.5-8.0)
[2022-06-15 13:46] LABS: Influenza A PCR NEGATIVE (Negative); Influenza B PCR NEGATIVE (Negative); Resp Syncy Virus RNA Qual PCR NEGATIVE (Negative); SARS COV2 PCR INHOUSE NEGATIVE (Negative)
[2022-06-15] MEDS: Ibuprofen 800 MG TABLET PO (16:23)
[2022-06-15] MEDS: LORazepam 0.5 MG TABLET PO (16:24)
[2022-06-15] MEDS: Acetaminophen 325 MG TABLET 650 MG PO (18:43)
[2022-06-15] MEDS: 0.9 % Sodium Chloride 1,000 ML 999 ML IV (18:44)
--- NOTE | 2022-06-15 18:53 | PC.NURSE ---
Patient still dizzy feels weak, now has a fever given tylenol for fever. Patient c/o headache, neck pain. Dr. Garcia notified ordered meds and chest xray.
[2022-06-15 19:52] LABS: Appearance Urine Clear; Color Urine Yellow; Glucose Urine UA Negative (Negative); Leukocyte Esterase Urine Negative (Negative); Nitrite Urine Negative (Negative); Specific Gravity - Urine <= 1.005 (1.005-1.025); UMIC TRIGGER UACC YES; UPreg QC Valid YES; Urine Blood Small (1+) (Negative); Urine Ketones 15 mg/dL (Negative); Urine Pregnancy NEGATIVE (NEGATIVE); Urine Protein Negative (Neg-Trace)
[2022-06-15 20:03] LABS: Bacteria Urine None Seen (None Seen); Hyaline Casts Urine 0-2 /LPF (0-2); RBC Urine 0-2 /HPF (0-2); Squamous Epithelial Cell Urine 0-2 /HPF (0-2); WBC Urine 0-5 /HPF (0-5)
--- NOTE | 2022-06-15 20:25 | MHC.EDTECH ---
This Tech assumed care of patient at 1900,vitals were obtained,patient ambulated to bathroom with a steady gait.Call powell in reach.
== END 2022-06-15 22:18 | disposition home or self-care (01) ==
PROVIDERS: Emergency Medicine; Emergency Provider Emergency Medicine
DX: R55 Syncope and collapse (principal); R50.9 Fever, unspecified; Z20.822 Contact with and (suspected) exposure to COVID-19; Z20.828 Contact with and (suspected) exposure to other viral communicable diseases; R51.9 Headache, unspecified; M54.2 Cervicalgia
CPT/HCPCS: 0241U; 36415; 70450; 71045; 72125; 80053; 81001; 81025; 84484; 84702; 85025; 93005; 96360; 96361; 99284; 99285

== ENCOUNTER 2022-06-16 21:57 | Emergency (ER) | payer OTHER, SELFPAY ==
[2022-06-16 21:59] VITALS: BP 139/60; BP 153/89; PULSE 105; PULSE 109; RESP 18; TEMP 37.3; O2SAT 100; O2SAT 99; BMI 49.4
[2022-06-16 22:11] VITALS: BP 125/47; BP 136/77; BP 139/62; PULSE 103; PULSE 108
--- NOTE | 2022-06-16 22:45 | PC.NURSE ---
Pt yelling on phone, ringing call powell repeatedly asking to leave.
--- NOTE | 2022-06-16 22:50 | PC.NURSE ---
Pt repeatedly ringing call powell requesting to leave. No ED provider has signed up for patient @ this time. Pt CAOx4, speaking full sentences, ambulating with a steady gait. Pt leaving ED @ this time.
== END 2022-06-16 22:57 | disposition left against medical advice (07) ==
PROVIDERS: Emergency Provider Emergency Medicine; PCP Internal Medicine
DX: R55 Syncope and collapse (principal)
CPT/HCPCS: 99282

== ENCOUNTER 2022-08-23 13:52 | Emergency (ER) | payer OTHER, SELFPAY ==
--- NOTE | ~2022-08-23 | XR_ITS ---
EXAMINATION: XR SOFT TISSUE NECK CLINICAL INDICATION: Trouble swallowing. Evaluate upper airway. COMPARISON: None available. TECHNIQUE: 2 views of the soft tissue neck were obtained. FINDINGS: Soft tissue films of the neck demonstrate a normal larynx, pharynx and upper trachea. No soft tissue swelling or opaque foreign body is demonstrated. Bony structures are normal. XR/XR soft tissue neck IMPRESSION: Unremarkable examination.
--- NOTE | 2022-08-23 14:08 | ED_ITS ---
HPI - General Adult General Chief complaint: General Medical Stated complaint: throat swelling, difficulty swallowing Source: patient and EMS Mode of arrival: EMS Limitations: no limitations History of Present Illness HPI narrative: Patient is a 21 year old assigned female at with a history of eosinophilic esophagitis presenting to the emergency department today with the feeling like her throat is swelling. Patient states that due to her eosinophilic esophagitis, she sometimes has the sensation that her throat is swelling after eating certain foods. Patient states that usually the feeling goes away but this seems to be lasting longer than usual. Patient denies any dizziness, lightheadedness, abdominal pain, nausea, vomiting, fever, chills, blurry vision, double vision, loss of vision, chest pain, difficulty breathing, shortness of breath, back pain, night sweats, pain with urination, increased urinary frequency, increased urinary urgency, blood in her urine or stool, syncope or a near syncopal epi sode, recent trauma or falls, bowel incontinence, bladder incontinence, bowel retention, bladder retention, or any other complaints at this time. Onset (ago): hour(s) Severity: mild Severity scale (1-10): 2 Relieving factors: none Exacerbating factors: none Associated symptoms: denies other symptoms Treatments prior to arrival: none Related Data Allergies Allergy/AdvReac Type Severity Reaction Status Date / Time No Known Allergies Allergy Verified 08/23/22 14:17 Review of Systems Constitutional: Constitutional: Reports no additional constitutional complaints, Denies chills, Denies fever(s) and Denies night sweats Eyes: Eyes: Reports no additional eye complaints, Denies blurry vision, Denies change in vision, Denies diplopia, Denies eye discharge, Denies loss of vision and Denies eye pain ENT: Denies dizziness Comments: sensation that throat is swelling Cardiovascular: Cardiovascular: Reports no additional cardiovascular complaints, Denies chest pain, Denies lightheadedness, Denies Loss of Consciousness and Denies dyspnea Respiratory: Respiratory: Reports no additional respiratory complaints and Denies dyspnea Gastrointestinal: Gastrointestinal: Reports no additional gastrointestinal complaints, Denies abdominal pain, Denies melena, Denies hematochezia, Denies change in bowel habits and Denies change in stool character Genitourinary: Genitourinary: Denies hematuria, Denies urinary frequency, D enies dysuria, Denies urinary incontinence, Denies urinary hesitancy and Denies urinary urgency Musculoskeletal: Musculoskeletal: Reports no additional musculoskeletal complaints, Denies numbness and Denies tingling Neurologic: Denies dizziness, Denies loss of vision, Denies numbness and Denies tingling Psychiatric: Psychiatric: Reports no additional psychiatric complaints Endocrine: Endocrine: Reports no additional endocrine complaints Hematologic/Lymphatic: Hematologic/Lymphatic: Reports no additional hematologic/lymphatic complaints Allergic/Immunologic: Allergic/Immunologic: Reports no additional allergic/immunologic complaints [facility] Past Medical History Attestation statement: The following information was validated with the patient. Source: old records reviewed and nursing notes reviewed Medical History Migraine Social History Social History Advance Directives: No Advance Directives Information Provided: Yes Physical Exam ED Vital Signs: BMI result Body Mass Index 48.3 Const General: cooperative, no acute distress, alert and awake Nutritional Appearance: well nourished Orientation/consciousness: patient oriented x3 Limitations: no limitations HENMT Head: Yes normal to inspection and Yes atraumatic Ears: hearing grossly normal bilaterally and external ears normal General nose exam: Normal external nose present, no nasal discharge noted and no epistaxis Face and sinus: Yes normal facial exam, No abrasion and No laceration Mouth: Normal oral and palatal mucosa present, oropharynx normal, no drooling and no muffled voice Eyes General: appearance normal, both eyes and all related structures Periorbital: periorbital findings normal Eyelids: Yes eyelids normal Conjunctivae: conjunctivae normal Pupils: Equal, round and reactive pupils present EOM: EOMs intact bilaterally Neck Neck: Yes normal visual inspection, Yes full ROM and Yes no lymphadenopathy Chest Chest palpation & inspection: normal inspection of the chest Resp Effort & Inspection: normal respiratory effort and able to speak in complete sentences Auscultation: clear to auscultation bilaterally Cardio Rate: regular rate Rhythm: regular rhythm GI Inspection: Yes normal to inspection Neuro General: patient oriented x3 and moves all extremities Cranial nerves: Yes Equal, round and reactive pupils present Cognition (Neuro): normal cognition Motor exam (neuro): 5/5 motor strength present throughout Sensory Exam: Normal double simultaneous stimulation for sensation Coordination: [id number] test normal Extrem General: Yes normal to inspection, Yes full ROM and Yes capillary refill normal Psych Appearance: grossly normal Mental Status: mental status grossly normal Affect: normal affect Attitude: cooperative Thought process: Normal thought process present Thought content: Normal thought content present Insight: Good insight present (Psych) Course Course Course Narrative: RME performed by Jackelin Irvin PA-C. Patient is a 21 year old assigned female at presenting to the emergency department with throat swelling. Patient states that she has eosinophil esophagitis and is currently having a flare. Labs ordered. Patient placed back in the waiting room pending room availability and results. Medical Decision Making Medical Decision Making [facility] Narrative: Patient is a 21 year old assigned female at with a history of eosinophilic esophagitis presenting to the emergency department today with throat swelling sensation. Patient's physical exam was unremarkable, including a normal oral pharynx and posterior oral pharynx. Patient's blood work was unremarkable. Patient eloped from the department before myself or any other emergency department provider could explain her physical exam findings and lab results. Differential Diagnosis Differential Diagnoses: The differential diagnosis associated with the presentation includes globus sensation, allergic reaction, eosinophilic esophagitis flare Lab Data [facility] Lab Attestation statement: I reviewed the patient's lab results. My interpretation of these studies and their corresponding values is that they are grossly normal. 08/23/22 14:57 08/23/22 14:57 Labs: Lab Results 08/23/22 08/23/22 08/23/22 Range/Units 14:57 14:57 14:57 WBC 6.1 (4.8-10.8) X10*3/uL RBC 4.75 (4.20-5.50) X10*6/uL Hgb 11.7 L (12.0-16.0) g/dl Hct 37.3 (37.0-47.0) % MCV 78.5 L (80.0-98.0) fL MCH 24.6 L (27.0-33.0) pg MCHC 31.4 (31.0-35.0) g/dl RDW 15.2 (11.0-16.0) % Plt Count 197 (160-400) X10*3/uL MPV 10.5 (9.4-12.3) fL Immature Gran % (Auto) 0.2 (0.0-0.4) % Neut % (Auto) 62.0 (45-73) % Lymph % (Auto) 28.8 (20-40) % [place] % (Auto) 6.9 (2-11) % Eos % (Auto) 1.6 (0-4) % Baso % (Auto) 0.5 (0-2) % Lymph # (Auto) 1.8 (1.2-4.9) X10*3/uL [place] # (Auto) 0.4 (0.1-1.2) X10*3/uL Eos # (Auto) 0.1 (0.0-0.4) X10*3/uL Baso # (Auto) 0.0 (0.0-0.2) X10*3/uL Abs Immat Gran (auto) 0.01 (0.00-0.03) X10*3/uL Absolute Neuts (auto) 3.8 (2.0-8.3) x10*3/uL Absolute Nucleated RBC 0.000 (0.0-0.012) X10*3/uL Nucleated RBC % (auto) 0.0 (0.0-0.2) /100WBC Smear Tech's Comments VERIFIED ESR 17 (0-20) MM/HR Sodium 139 (135-145) mmol/L Potassium 3.5 (3.3-5.1) mmol/L Chloride 107 (96-108) mmol/L Carbon Dioxide 22 (22-29) mmol/L Anion Gap 14 (12-20) BUN 5 L (9-16) mg/dL Creatinine 0.72 (0.5-1.4) mg/dL Estim Creat Clear Calc 150.5 Estimated GFR > 60 Random Glucose 82 (60-115) mg/dL Calcium 9.4 D (8.4-10.2) mg/dL Total Bilirubin 0.5 (0.0-1.0) mg/dL AST 19 (5-31) U/L ALT 18 (0-31) U/L Alkaline Phosphatase 66 (39-117) U/L C-Reactive Protein 0.43 (< or = 0.50) mg/dL Total Protein 7.7 (6.5-8.0) g/dL Albumin 4.1 (3.5-5.0) g/dL Independent Historian Clinical information obtained from an independent historian. History obtained from or confirmed by: EMS (EMS provided additional history and confirmed the hi story provided by the patient. ) Chronic Conditions Patient?s care impacted by: Other (Eosinophilic esophagitis) Discharge Plan Discharge Clinical Impression: Globus sensation Patient Disposition: Elopement Discharge Date/Time: 08/23/22 23:31
[2022-08-23 14:10] VITALS: BP 128/90; BP 136/77; PULSE 88; PULSE 99; RESP 18; TEMP 36.5; O2SAT 98; O2SAT 99; BMI 48.3
[2022-08-23 15:07] LABS: Basophils Percent Auto 0.5 % (0-2); Eosinophils Absolute Auto 0.1 X10*3/uL (0.0-0.4); Eosinophils Percent Auto 1.6 % (0-4); Hematocrit 37.3 % (37.0-47.0); Hemoglobin 11.7 g/dl (12.0-16.0); Imm Gran Abs Auto 0.01 X10*3/uL (0.00-0.03); Imm Gran Pct Auto 0.2 % (0.0-0.4); Lymphocytes Absolute Auto 1.8 X10*3/uL (1.2-4.9); Lymphocytes Percent Auto 28.8 % (20-40); MANUAL DIFF FLAG SCAN; Mean Corpuscular HGB Conc 31.4 g/dl (31.0-35.0); Mean Corpuscular Hemoglobin 24.6 pg (27.0-33.0); Mean Corpuscular Volume 78.5 fL (80.0-98.0); Mean Platelet Volume 10.5 fL (9.4-12.3); Monocytes Absolute Auto 0.4 X10*3/uL (0.1-1.2); Monocytes Percent Auto 6.9 % (2-11); Neutrophils Absolute Auto 3.8 x10*3/uL (2.0-8.3); PLT CLUMP 1; Red Blood Count 4.75 X10*6/uL (4.20-5.50); Red Cell Distribution Width 15.2 % (11.0-16.0); SCAN SMEAR FLAG 1
[2022-08-23 15:15] LABS: White Blood Count 6.1 X10*3/uL (4.8-10.8)
[2022-08-23 15:20] LABS: Alanine Aminotransferase 18 U/L (0-31); Albumin Level 4.1 g/dL (3.5-5.0); Alkaline Phosphatase 66 U/L (39-117); Anion Gap 14 (12-20); Aspartate Amino Transferase 19 U/L (5-31); Bilirubin Total 0.5 mg/dL (0.0-1.0); Blood Urea Nitrogen 5 mg/dL (9-16); C Reactive Protein 0.43 mg/dL (< or = 0.50); Calcium 9.4 mg/dL (8.4-10.2); Carbon Dioxide 22 mmol/L (22-29); Chloride 107 mmol/L (96-108); Creatinine Clr Calc Pharmacy 150.5; Estimated Glomerular Filt Rate > 60; Glucose Random 82 mg/dL (60-115); Potassium 3.5 mmol/L (3.3-5.1); Sodium 139 mmol/L (135-145); Total Protein 7.7 g/dL (6.5-8.0)
[2022-08-23 15:31] LABS: Platelet Count 197 X10*3/uL (160-400); SLIDE REVIEW VERIFIED
[2022-08-23 15:45] LABS: Erythrocyte Sedimentation Rate 17 MM/HR (0-20)
--- NOTE | 2022-08-23 21:17 | ECG_ITS ---
Test Reason : chest pain Blood Pressure : / mmHG Vent. Rate : 090 BPM Atrial Rate : 090 BPM P-R Int : 194 ms QRS Dur : 144 ms QT Int : 396 ms P-R-T Axes : 079 051 228 degrees QTc Int : 484 ms Normal sinus rhythm Left bundle branch block Abnormal ECG When compared with ECG of 15-JUN-2022 12:06, Left bundle branch block is now Present Referred By: Generic ED Physician Electronically Signed By:BRODIE CORADO
== END 2022-08-23 23:31 | disposition left against medical advice (07) ==
PROVIDERS: Physician Assistant Medical; Emergency Provider Emergency Medicine
DX: R07.89 Other chest pain (principal); F45.8 Other somatoform disorders; M54.2 Cervicalgia; Z79.899 Other long term (current) drug therapy
CPT/HCPCS: 36415; 70360; 80053; 85025; 85652; 86140; 93005; 99281; 99283

== ENCOUNTER 2023-12-11 09:22 | Emergency (ER) | payer OTHER, SELFPAY ==
--- NOTE | ~2023-12-11 | MR_ITS ---
EXAMINATION: MR BRAIN WITHOUT CONTRAST CLINICAL INFORMATION: Headache, tinnitus, family history of idiopathic intracranial hypertension COMPARISON: CT head on 06/15/2022 TECHNIQUE: MRI of the brain was obtained using routine sequences without contrast. FINDINGS: Motion artifact is present. No acute intracranial hemorrhage or infarct. Single focus of T2/FLAIR hyperintensity involving the left superior frontal gyrus white matter, nonspecific. No edema, midline shift or hydrocephalus. No acute extra-axial fluid collections. The osseous structures are unremarkable. Partially empty sella. The pineal gland and remaining midline structures are unremarkable. No orbital pathology. Mild mucosal thickening of the ethmoid sinuses. The mastoid air cells are clear. MR/MR head/brain wo con IMPRESSION: -No acute intracranial abnormality. -Single nonspecific focus of T2/FLAIR hyperintensity involving the left superior frontal gyrus white matter. -Partially empty sella. No other MR evidence of idiopathic intracranial hypertension. Electronically signed by: Janell Cole MD 12/11/2023 03:26 PM EDT
[2023-12-11 09:25] VITALS: BP 130/84; PULSE 76; O2SAT 98; BMI 45.6
[2023-12-11 09:31] VITALS: BP 130/75; PULSE 78; RESP 16; TEMP 36.5; O2SAT 98
[2023-12-11 09:43] LABS: MANUAL DIFF FLAG NO
[2023-12-11 09:45] LABS: Basophils Absolute Auto 0.1 X10*3/uL (0.0-0.2); Basophils Percent Auto 0.8 % (0-2); Eosinophils Absolute Auto 0.2 X10*3/uL (0.0-0.4); Eosinophils Percent Auto 2.4 % (0-4); Hematocrit 38.4 % (37.0-47.0); Imm Gran Abs Auto 0.01 X10*3/uL (0.00-0.03); Imm Gran Pct Auto 0.2 % (0.0-0.4); Lymphocytes Absolute Auto 1.8 X10*3/uL (1.2-4.9); Lymphocytes Percent Auto 29.9 % (20-40); Mean Corpuscular HGB Conc 33.9 g/dl (31.0-35.0); Mean Corpuscular Hemoglobin 28.8 pg (27.0-33.0); Mean Corpuscular Volume 85.1 fL (80.0-98.0); Mean Platelet Volume 10.8 fL (9.4-12.3); Monocytes Absolute Auto 0.4 X10*3/uL (0.1-1.2); Monocytes Percent Auto 6.3 % (2-11); Neutrophils Absolute Auto 3.7 x10*3/uL (2.0-8.3); Neutrophils Percent Auto 60.4 % (45-73); Platelet Count 216 X10*3/uL (160-400); Red Blood Count 4.51 X10*6/uL (4.20-5.50); Red Cell Distribution Width 12.5 % (11.0-16.0); White Blood Count 6.2 X10*3/uL (4.8-10.8)
--- NOTE | 2023-12-11 09:46 | ED_ITS ---
HPI - Nausea/Vomiting/Diarrhea General Chief complaint: General Medical Stated complaint: NAUSEA/VOMITING,ABKER X3W,WT LOSS,FROM ALAN Time Seen by Provider: 12/11/23 09:36 Source: patient, EMS and old records reviewed Mode of arrival: EMS Limitations: no limitations History of Present Illness ED Provider: HAILEY HPI Narrative: 23 yo female with no sig PMH other than chronic headaches though has a sister who has idiopathic intracranial HTN here with 1+ year on and off headaches has not seen eye doctor, now 3 weeks dizziness, non pulsatile ringing in ears with n/v and dizzy when she stands. No head trauma or fevers. Referred by urgent care. She notes it is all worse when she first stands but is constant throughout the day night and morning. prior normal CT scan 2022. She notes her biggest issue is when she stands she is dizzy and the dizziness is affecting her at work. elicited complaint: other (n/v tinnitus headaches blurred vision) Onset (ago): week(s) (1 year but worse x 3 weeks) Description of vomiting: watery Associated nausea: Yes Associated abdominal pain: No Pain consistency: constant Severity: moderate Quality: aching Exacerbating factors: eating and movement Relieving factors: none Context: other Associated symptoms: headaches, loss of appetite, malaise, nausea/vomiting, weakness and other (headaches, tinnitus) Related Data Allergies Allergy/AdvReac Type Severity Reaction Status Date / Time Penicillins Allergy Unknown Verified 12/11/23 09:28 Review of Systems 2 Review of Systems: Constitutional : No Fever, No Chills, No Fatigue ENT/Mouth : No sore throat, No Rhinorrhea, pos tinnitus Eyes: No Eye Pain, No Swelling, No Redness Cardiovascular : No Chest Pain, No SOB, No Dyspnea on Exertion Respiratory : No Cough, No Sputum Gastrointestinal : pos Nausea, pos Vomiting, No Diarrhea, No abdominal Pain Genitourinary : No Dysuria, No Urinary Frequency, No Hematuria, Musculoskeletal : No joint pain, No Myalgias, No Joint Swelling Skin : No Skin Lesions, No rash Neuro : No Weakness, No Numbness, No Dizziness, positive Headache Psych : No Anxiety/Panic, No Depression All other systems reviewed and are negative Gastrointestinal: Gastrointestinal: Reports nausea PMFSH Past Medical History Attestation statement: The following information was validated with the patient. Source: old records reviewed Medical History Migraine Social History Social History (Updated 12/11/23 @ 10:06 by Lyla Schilling DO) Patient Tobacco Use Status: Never used Tobacco Smoked in Last 30 Days: No Use of substances other than those prescribed or required for medical reasons: No Advance Directives: No Do you have a plan to hurt others: No Plan Patient : No Physical Exam 2 Vital Signs: Vital Signs: Last Vital Signs Temp 97.8 F 12/11/23 13:39 Pulse 84 12/11/23 13:39 Resp 16 12/11/23 13:39 BP 116/78 12/11/23 13:39 Pulse Ox 99 12/11/23 13:39 O2 Del Method Room Air 12/11/23 13:39 BMI result Body Mass Index 45.6 Appearance: Alert. Oriented X3. No acute distress. Eyes: Pupils equal, round and reactive to light. ENT: Pharynx normal. Neck: Normal inspection. Neck supple. no meningeal signs CVS: Normal heart rate and rhythm. Pulses normal. Respiratory: No respiratory distress. Breath sounds normal. Abdomen: Soft and nontender. Skin: Skin warm and dry. Normal skin color. Normal skin turgor. Extremities: No lower extremity edema. No calf ttp Neuro: Oriented X 3. No motor deficit. No sensory deficit. Medications Administered Discontinued Medications Generic Name Dose Route Start Last Admin Trade Name Luis Mq PRN Reason Stop Dose Admin Lorazepam 1 mg 12/11/23 09:57 12/11/23 13:39 Lorazepam 2 Mg/Ml Vial IVPUSH 12/11/23 09:58 1 mg STAT STA Administration Procedures Procedure Narrative Procedure Narrative: limited bilateral ocular US - R eye optic nerve sheath diameter 3mm back - 4mm L eye optic nerve sheath diameter 3mm back - 3mm Medical Decision Making Medical Decision Making MDM Narrative: 23 yo female with PMH of migraines here with c/o worsening chronic headache x 3 weeks now with tinnitus, n/v poor appetite, dizzziness with standing has fam hx of intracranial HTN will obtain labs, MRI of brain, US of optic nerve for papilledema. Could be migraine, dehydration, intracranial HTN. I have a lower suspicion of intracranial HTN - she has no blurred vision, her biggest complaint is dizziness when standing, she has no pulsatile tinnitus. 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 12/11/23 09:33 12/11/23 09:33 Labs: Lab Results 12/11/23 12/11/23 12/11/23 Range/Units 09:33 10:14 10:24 WBC 6.2 (4.8-10.8) X10*3/uL RBC 4.51 (4.20-5.50) X10*6/uL Hgb 13.0 (12.0-16.0) g/dl Hct 38.4 (37.0-47.0) % MCV 85.1 (80.0-98.0) fL MCH 28.8 (27.0-33.0) pg MCHC 33.9 (31.0-35.0) g/dl RDW 12.5 (11.0-16.0) % Plt Count 216 (160-400) X10*3/uL MPV 10.8 (9.4-12.3) fL Immature Gran % (Auto) 0.2 (0.0-0.4) % Neut % (Auto) 60.4 (45-73) % Lymph % (Auto) 29.9 (20-40) % Hand % (Auto) 6.3 (2-11) % Eos % (Auto) 2.4 (0-4) % Baso % (Auto) 0.8 (0-2) % Lymph # (Auto) 1.8 (1.2-4.9) X10*3/uL Hand # (Auto) 0.4 (0.1-1.2) X10*3/uL Eos # (Auto) 0.2 (0.0-0.4) X10*3/uL Baso # (Auto) 0.1 (0.0-0.2) X10*3/uL Abs Immat Gran (auto) 0.01 (0.00-0.03) X10*3/uL Absolute Neuts (auto) 3.7 (2.0-8.3) x10*3/uL Absolute Nucleated RBC 0.000 (0.0-0.012) X10*3/uL Nucleated RBC % (auto) 0.0 (0.0-0.2) /100WBC Sodium 139 (135-145) mmol/L Potassium 3.7 (3.3-5.1) mmol/L Chloride 107 (96-108) mmol/L Carbon Dioxide 27 (22-29) mmol/L Anion Gap 9 L (12-20) BUN 6 L (9-16) mg/dL Creatinine 0.71 (0.5-1.4) mg/dL Estim Creat Clear Calc 138.6 Estimated GFR > 60 Random Glucose 93 (60-115) mg/dL Calcium 8.9 (8.4-10.2) mg/dL Total Bilirubin 0.3 (0.0-1.0) mg/dL AST 18 (5-31) U/L ALT 20 (0-31) U/L Alkaline Phosphatase 74 (39-117) U/L Total Protein 7.3 (6.5-8.0) g/dL Albumin 4.0 (3.5-5.0) g/dL TSH 1.30 (0.32-4.0) uIU/mL Beta HCG, Quant < 2 mIU/mL Urine Color Dark Yellow Urine Appearance Cloudy Urine pH 6.0 (5.0-9.0) Ur Specific Gurley 1.010 (1.005-1.025) Urine Protein Trace (Neg-Trace) mg/dL Urine Glucose (UA) Negative (Negative) mg/dL Urine Ketones Negative (Negative) mg/dL Urine Blood Large (3+) H (Negative) Urine Nitrite Negative (Negative) Ur Leukocyte Esterase Trace H (Negative) Urine RBC >20 H (0-2) /HPF Urine WBC 0-5 (0-5) /HPF Ur Squamous Epith Cells 3-5 (0-2) /HPF Urine Bacteria None Seen (None Seen) Hyaline Casts 0-2 (0-2) /LPF Urine Opiates Screen Not Detected (Not Detect) Ur Buprenorphine Scrn Not Detected (Not Detect) ng/mL Ur Oxycodone Screen Not Detected (Not Detect) ng/mL Urine Methadone Screen Not Detected (Not Detect) ng/mL Urine Fentanyl Screen Not Detected (Not Detect) Ur Barbiturates Screen Not Detected (Not Detect) Ur Phencyclidine Scrn Not Detected (Not Detect) Ur Amphetamines Screen Not Detected (Not Detect) U Benzodiazepines Scrn Not Detected (Not Detect) Urine Cocaine Screen Not Detected (Not Detect) U Marijuana (THC) Screen Not Detected (Not Detect) Influenza Type A (PCR) NEGATIVE (Negative) Influenza Type B (PCR) NEGATIVE (Negative) RSV RNA Qual (PCR) NEGATIVE (Negative) SARS-CoV-2 RNA (RT-PCR) NEGATIVE (Negative) Independent Interpretation I performed an independent interpretation of an: CT Scan (MRI) Independent Historian Clinical information obtained from an independent historian. History obtained from or confirmed by: EMS External Record Review External record reviewed: Outpatient record Discharge Plan Discharge Clinical Impression: Dizziness Patient Disposition: Home, Self-Care Instructions: Dizziness (ED) Additional Instructions: labs reassuring no signs of elevated pressure behind the eyes on today's US and no orbital pathology on today's MRI, no mass on MRI you need to see any eye doctor to evaluate optic nerve as well - please do so as soon as possible eat a larger breakfast, wait 30 seconds to 1 min then stand up slowly you are high risk for intracranial hypertension with your family history so please make sure you have an eye doctor repeat your eye exam as soon as possible return for any worsening symptoms or concerns. Stand Alone Forms: Work/School Release Print Language: Salvadorean
[2023-12-11 10:12] LABS: Alanine Aminotransferase 20 U/L (0-31); Alkaline Phosphatase 74 U/L (39-117); Anion Gap 9 (12-20); Aspartate Amino Transferase 18 U/L (5-31); Bilirubin Total 0.3 mg/dL (0.0-1.0); Blood Urea Nitrogen 6 mg/dL (9-16); Calcium 8.9 mg/dL (8.4-10.2); Carbon Dioxide 27 mmol/L (22-29); Chloride 107 mmol/L (96-108); Creatinine Clr Calc Pharmacy 138.6; Estimated Glomerular Filt Rate > 60; Glucose Random 93 mg/dL (60-115); Potassium 3.7 mmol/L (3.3-5.1); Sodium 139 mmol/L (135-145); Total Protein 7.3 g/dL (6.5-8.0)
[2023-12-11 10:23] LABS: Influenza A PCR NEGATIVE (Negative); Influenza B PCR NEGATIVE (Negative); Resp Syncy Virus RNA Qual PCR NEGATIVE (Negative); SARS COV2 PCR INHOUSE NEGATIVE (Negative)
--- NOTE | 2023-12-11 10:28 | PC.NURSE ---
MRI form filled out/faxed/placed in pt's chart. labs/urine obtained/sent to lab. pt waiting to have MRI completed at this time. otherwise resting in no apparent distress. no sob/wob noted. respirations even/unlabored. plan of care ongoing. call powell placed within reach.
[2023-12-11 10:34] LABS: Glucose Urine UA Negative (Negative); Leukocyte Esterase Urine Trace (Negative); Nitrite Urine Negative (Negative); UMIC TRIGGER UACC YES; Urine Blood Large (3+) (Negative); Urine Ketones Negative (Negative); Urine Protein Trace mg/dL (Neg-Trace)
[2023-12-11 10:35] LABS: Appearance Urine Cloudy; Color Urine Dark Yellow
[2023-12-11 10:36] LABS: Bacteria Urine None Seen (None Seen); Hyaline Casts Urine 0-2 /LPF (0-2); RBC Urine >20 /HPF (0-2); WBC Urine 0-5 /HPF (0-5)
[2023-12-11 10:38] LABS: Amphetamine Screen Urine Not Detected (Not Detect); Barbiturates, Urine Not Detected (Not Detect); Benzodiazepines Screen Urine Not Detected (Not Detect); Buprenorphine Scr Not Detected (Not Detect); Cannabinoid Screen Urine Not Detected (Not Detect); Cocaine Screen Urine Not Detected (Not Detect); Fentanyl, urine Not Detected (Not Detect); Methadone Screen, Urine Not Detected (Not Detect); Opiate Screen Urine Not Detected (Not Detect); Oxycodone Screen Urine Not Detected (Not Detect); Phencyclidine Screen Urine Not Detected (Not Detect)
[2023-12-11 11:15] LABS: HCG Quantitative < 2 mIU/mL
[2023-12-11 13:39] VITALS: BP 116/78; PULSE 84; RESP 16; TEMP 36.6; O2SAT 99
[2023-12-11] MEDS: LORazepam 2 MG/ML VIAL 1 MG IVPUSH (13:39)
--- NOTE | 2023-12-11 13:40 | PC.NURSE ---
delay in medication administration as pt was supposed to be medicated prior to MRI being completed. per MRI staff, pt was scheduled to have scan completed at 1330. staff from MRI messaged this RN telling that they would be coming shortly. pt medicated per provider order. per MRI staff, pt now unable to have scan completed at this time. ETA unknown. plan of care ongoing.
--- NOTE | 2023-12-11 14:25 | PC.NURSE ---
pt to MRI at this time.
[2023-12-11 16:02] VITALS: BP 113/65; PULSE 93; RESP 16; TEMP 36.9; O2SAT 98
[2023-12-11 16:10] VITALS: BP 113/65; PULSE 93; RESP 16; TEMP 36.9; O2SAT 98
== END 2023-12-11 16:10 | disposition home or self-care (01) ==
PROVIDERS: Emergency Provider Emergency Medicine
DX: R42 Dizziness and giddiness (principal); R11.2 Nausea with vomiting, unspecified; R51.9 Headache, unspecified; I10 Essential (primary) hypertension; R53.1 Weakness; H93.13 Tinnitus, bilateral; Z51.81 Encounter for therapeutic drug level monitoring; Z03.818 Encounter for observation for suspected exposure to other biological agents ruled out; Z79.899 Other long term (current) drug therapy
CPT/HCPCS: 0241U; 36415; 70551; 80053; 80307; 81001; 84443; 84702; 85025; 96374; 99284; 99285; J2060

== ENCOUNTER 2024-05-31 16:51 | Emergency (ER) | payer OTHER, SELFPAY ==
[2024-05-31 16:54] VITALS: BP 119/56; BP 132/57; PULSE 74; PULSE 80; RESP 18; TEMP 36.8; O2SAT 98; O2SAT 99; BMI 43.5
--- NOTE | 2024-05-31 17:53 | ECG_ITS ---
Test Reason : chest pain Blood Pressure : */* mmHG Vent. Rate : 73 BPM Atrial Rate : 73 BPM P-R Int : 144 ms QRS Dur : 84 ms QT Int : 384 ms P-R-T Axes : 27 0 -10 degrees QTcB Int : 423 ms Normal sinus rhythm Minimal voltage criteria for LVH, may be normal variant ( R in aVL ) Nonspecific T wave abnormality Abnormal ECG When compared with ECG of 24-Aug-2022 09:25, Left bundle branch block is no longer Present Referred By: Generic ED Physician Electronically Signed By: BRODIE CORADO
--- OUTSIDE RECORDS SUMMARY | 2024-05-31 18:15 | XMS_ITS | Clinical Summary ---
Author Organization [address] Address [address] [place] [phone] Phone Care Team Providers Care Costing Analyst Name Role Phone Jennifer Merritt MD Primary Care Provider [phone] Allergies Active Allergy Reactions Criticality Noted Date Comments Cat Dander 10/02/2016 Nutritional Supplement-Fiber Anaphylaxis High 2023 Milk Containing Products (Dairy) 06/2023 Other 08/01/2015 Seasonal Peanut 03/06/2023 Shellfish Derived 05/18/2024 Soy 03/06/2023 Tree Nuts 03/06/2023 Wheat 05/18/2024 Medications etonogestrel-elu ting contraceptive device (Nexplanon) 68 mg implant subdermal implant Inject 68 mg into the skin Once. 04/02/19 23 Active EPINEPHrine (EPIPEN) 0.3 mg/0.3 mL injection Inject 0.3 mL (0.3 mg total) into the thigh if needed. 09/26/19 24 Active fluticasone propionate (FLONASE) 50 mcg/actuation nasal spray Administer 2 sprays into each nostril 1 (one) time each day. Shake gently. Before first use, prime pump. After use, clean tip and replace cap. 16 g 1 04/23/19 25 Active famotidine (Pepcid) 20 mg tablet Take 1 tablet (20 mg total) by mouth 2 (two) times a day. 60 each 11 05/19/19 25 026 Active loperamide (Imodium A-D) 2 mg tablet Take 1 tablet (2 mg total) by mouth 4 (four) times a day if needed for diarrhea. 60 tablet 05/19/19 25 Active diphenoxylate-at ropine (LOMOTIL) 2.5-0.025 mg per tablet Take 1 tablet by mouth 4 (four) times a day if needed for diarrhea. Max Daily Amount: 4 tablets 60 tablet 5 05/20/19 25 025 Active omeprazole (PriLOSEC) [address] capsule Take 1 capsule (20 mg total) by mouth 1 (one) time each day. 90 capsule 01/21/20 24 025 Discontinued meclizine (ANTIVERT) 25 mg tablet Take 1 tablet (25 mg total) by mouth 3 (three) times a day if needed for dizziness for up to 10 days. 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 Treated with clindamycin and bactrim. Removed nose piercing if it's not better in a week Binge-eating disorder, moderate 07/27/2017 Allergy to cats 08/07/2015 Overview (01/01/2024): 08/16: RAST testing positive Acne 07/28/2014 Migraine headache 07/02/2013 Overview (01/01/2024): 05/16: started on elavil for migraine prophylactic medication 01/2021- Denies Aura Suicidal ideation 11/30/2012 Overview (01/01/2024): Admitted at [facility] 11/13. Started on Prozac 20 mg 11/04/14- 11/09/14 admitted at [facility] partial hospitalization. Pt discharged because she refused to attend 06/16: admitted at [facility] [address] for 5 days due to suicidal ideation Morbid obesity 06/08/2012 Depression 06/24/2011 Overview (01/01/2024): On Fluoxetine, had psychiatrist through [facility] Mahduri Hoover 10/18: on zoloft 100 mg Last Assessment & Plan: Assessment:improving Plan:c/w prozac 40 mg, clonidine 0.1 mg at bedtime. F/u with psychiatric med provider Madhuri Huang Behavior disturbance 12/08/2009 Overview (01/01/2024): Xiomara MUNOZ, Sathish Polk Individual therapist [facility] family and counseling Amalia hernandezabbeycarina Sathish Mariscal. Family support stabilization [facility] 05/16: visual hallucinations. Last Assessment & Plan: Sees counselor Anu Polk, [facility], weekly appt this with psychiatrist. On clonidine. Encounters Date Type Department Care Team Description 05/19/[address] [facility] [address] [phone] Carlitos Kaufman PA 05/18/2024 3:00 PM EDT Consult Gastroenterology [facility] 175 [facility] [address] [phone] Carlitos Kaufman PA Dyspepsia (Primary Dx); Abdominal bloating; Gassiness; Irritable bowel syndrome, unspecified type 04/23/2024 7:30 AM EST Office Visit Adult Medicine [address] [phone] Jennifer Merritt MD Sinus headache (Primary Dx); Allergy, subsequent encounter; Abdominal bloating 03/10/2024 2:30 PM EST Office Visit Adult Medicine [address] [phone] Sriram Soni PA Laceration of left hand without foreign body, subsequent encounter (Primary Dx) from Last 3 Months Immunizations Name Administration Dates Next Due DTaP (Infanrix) 6wks to less than 7yo ,01/31/2000,05/15/1999,03/01,1998 GCsN-BWG-XPA (Pentacel) 2mo to less than 5yo 01/31/2000,05/15/1999,03/01/1999,11/27 HPV, Quadrivalent 07/02/2013,07/01/2012,06/24/19 12 Hepatitis B Pediatric (Enger ix B; Recombivax HB) to less than 20 yo 07/02/2013,07/04/1999,05/15/1999,03/01 IPV Inactivated polio (Ipol) 6wks and older 08/05/2003,05/15/1999,04/12/1999,11/27 Influenza Quadravalent, MDCK , 0.5ml, preservative free (Flucelvax) 6mo and older 03/06/2021,11/20/2017 Influenza trivalent, 0.5mL, preservative free (Fluarix; FluLaval; Fluzone) ages 6mo and older (Afluria) 3 years and older 12/24/2016,11/29/2014,12/22/2012,12/11,12/08/2009,04/05/2004 MMR, measles mumps and rubel la Live (Priorix; M-M-R II) 12mo and older 08/05/2003,10/09/1999 Meningococcal MCV4P 11/29/2014,06/24/2011 InHiro SARS-CoV-2 COVID-19, mRNA, LNP-S, preservative free 07/02/2020,06/11/2020 Tdap Tetanus diptheria acell ular pertussis (Boostrix; Adacel) 7yo and older 10/31/2021,12/08/2009 Varicella live (Varivax) 12m o and older 12/08/2009,01/31/2000 Surgical History Surgery Date Site/Laterality Comments OTHER SURGICAL HISTORY PROCEDURE: DENIES PREVIOUS SURGERY Family History Medical History Relation Name Comments Alcohol/Drug Father from heroi n overdose when Sulema was 10. Asthma Mother Other: paula Mother Asthma Sister 1 Asthma Sister 2 Paternal Side Breast cancer Neg Hx Ovarian cancer Neg Hx Uterine cancer Neg Hx Relation Name Status Comments Father 09/07 Maternal Grandfather Alive Maternal Grandmother Alive Mother Alive Paternal Grandfather Alive Paternal Grandmother Alive Sister 1 Alive 10/18/03 usha Sister 2 Alive Sister 3 Alive 12/28/96 belen Social History Tobacco Use Types Packs/Day Years Used Date Smoking Tobacco: Never Passive Smoke Exposure: Never Smokeless Tobacco: Never Alcohol Use Standard Drinks/Week Comments No 0 (1 standard drink = 0.6 oz pur e alcohol) Comments No Sex and Gender Information Value Date Recorded Sex Assigned at Not on file Legal Sex Female 4:57 AM EST Gender Identity Not on file Sexual Orientation Not on file Obstetrics History Last Filed Vital Signs Vital Sign Reading Time Taken Comments Blood Pressure 110/58 05/18/2024 3:15 PM EDT Pulse 72 05/18/2024 3:15 PM EDT Temperature 36.4 ??C (97.5 ??F) 04/23/2024 7:30 AM ES T Respiratory Rate 14 04/23/2024 7:30 AM EST Oxygen Saturation 99% 05/18/2024 3:15 PM EDT Inhaled Oxygen Concentration - - Weight 106 kg (233 lb) 05/18/2024 3:15 PM EDT Height 152.4 cm (5') 05/18/2024 3:15 PM EDT Body Mass Index 45.5 05/18/2024 3:15 PM EDT Plan of Treatment Upcoming Encounters Date Type Department Care Team (Late st Contact Info) Description 07/22/2024 8:30 AM EDT Office Visit Adult Medicine [address] [phone] Jennifer Merritt MD [address] [place] [phone] Health Maintenance Due Date Last Done Comments Social Influencers of Health Screening 02/03/2022 COVID-19 Vaccine ( season) 2023 07/02/2020, 06/11/2020 Influenza Vaccine (#1) 2023 , 11/20/2017, 12/24/2016, Additional history exists Cervical Cancer Screening: Pap Smear 04/12/2024 04/12/2021, 04/12/2021, 04/12/2021 Depression Screening 10/15/2024 10/16/2023 Cholesterol Screening (Lipid Panel) 10/31/2026 10/31/2021 DTaP,Tdap,and Td Vaccines (9 - Td or Tdap) 02/13/2034 02/14/2024, 10/31/2021, 12/08/2009, Additional history exists HIB Vaccines Completed 01/31/2000, 05/01, 03/01/1999, Additional history exists IPV Vaccines Completed 08/05/2003, 01/03, 05/15/1999, Additional history exists MMR Vaccines Completed 08/05/2003, 10/09/1999 Varicella Vaccines Completed 12/08/2009, 01/31/2000 HPV Vaccines Completed 07/02/2013, 03/2012, 06/24/2011 Hepatitis B Vaccines Completed 07/02/2013, 07/04/1999, 05/15/1999, Additional history exists Meningococcal ACWY Vaccine Completed 11/29/2014, HIV Screening Completed 07/01/2022 Hepatitis C Screening Completed 07/01/2022 Gonorrhea/Chlamydia Screening Discontinued 07/04/2023 Hepatitis A Vaccines Aged Out No long er eligible based on patient's age to complete this topic Meningococcal B Vacine Aged Out No lo nger eligible based on patient's age to complete this topic Pneumococcal Vaccine: Pediatrics (0 to 5 Years) and At-Risk Patients (6 to 64 Years) Aged Out No longer eligible based on patient's age to complete this topic RSV Immunization Patients Under 20 months Aged Out No longer eligible based on patient's age to complete this topic Procedures Procedure Name Priority Date/Time Associated Diagnosis Comments HELICOBACTER PYLORI BREATH TEST Routine 05/18/2024 4:27 PM EDT Abdominal bloating Dyspepsia Gassiness Irritable bowel syndrome, unspecified type DEPRESSION SCREENING Routine 10/16/2023 GONORRHEA/CHLAMYDIA SCRREENING Routine 07/04/2023 HEPATITIS C SCREENING Routine 07/01/2022 HIV SCREENING Routine 07/01/2022 LIPID PANEL Routine 10/31/2021 PAP SMEAR Routine 04/12/2021 from Last 3 Months or Most Recently Relevant to Health Maintenance Results * Helicobacter pylori breath test (05/18/2024 4:27 PM EDT) [facility] H Pylori Breath Test Negative Negative LAB CHEMISTRY METHOD 05/19/2024 7:32 AM EDT [facility] Breath Oral cavity structure / Unknown Non-blood Collection / Unknown 05/18/2024 4:27 PM EDT 05/18/2024 4:27 PM EDT Carlitos TELLEZ LAB BODY FLUIDS AND STOOLS MICHAEL MCMILLAN Final Result [facility] [address] [place] [address], [place] [phone] * Depression Screening (10/16/2023) Pathologist [facility] Depression Screening Abstracted Result [facility] Provider HEALTH MAINTENANCE Final Result * Gonorrhea/Chlamydia Screening (07/04/2023) Pathologist [facility] Gonorrhea/Chla mydia Screening Abstracted Result [facility] Provider HEALTH MAINTENANCE Final Result * HIV Screening (07/01/2022) [facility] HIV Screening Abstracted Result [facility] Provider HEALTH MAINTENANCE Final Result * Hepatitis C Screening (07/01/2022) Pathologist [facility] Hepatitis C Screening Abstracted Result [facility] Provider HEALTH MAINTENANCE Final Result * (ABNORMAL) Lipid panel (10/31/2021) [facility] LDL/HDL Ratio 4 0 - 4 Triglycerides 50 0 - 150 mg/dL Cholesterol 177 0 - 200 mg/dL HDL 47 >=40 mg/dL LDL Cholesterol 120(A) 0 - 100 mg/dL Blood Venous blood specimen / Unknown Result [facility] Historical Provider LAB BLOOD ORDERABLES Carolyne l Result * Pap smear (04/12/2021) 04/12/2021 Narrative HISTORICAL TESTING LAB RESULTING AGENCY - 05/01/2021 7:26 AM EST [id number] THINPREP PAP, IMAGED: NEGATIVE FOR SQUAMOUS INTRAEPITHELIAL LESION AND MALIGNANCY . NOTE: THE PAP TEST IS A SCREENING TEST WITH AN INHERENT FALSE NEGATIVE RATE. AUTOMATED PRESCREENING OF ALL LIQUID BASED SPECIMENS IS PERFORMED BY THE THINPREP IMAGING SYSTEM UNLESS OTHERWISE STATED. MARTIN SANDERSON(ASCP) (CASE ELECTRONICALLY SIGNED 04 30 2021) ADEQUACY: SATISFACTORY ENDOCERVICAL/TRANSFORMATION ZONE COMPONENT PRESENT. SOURCE: THINPREP PAP HPV IF ASCUS, CERVICAL, IMAGED CLINICAL INFORMATION: HPV IF DIAGNOSIS OF ASCUS. Z12.4 Samantha TARIQ LAB CYTOLOGY ORDERABLES Final Result HISTORICAL TESTING LAB RESULTING AGENCY from Last 3 Months or Most Recently Relevant to Health Maintenance Insurance [facility] [employer] Care Teams Costing Analyst Relationship Specialty Start Date End Date Jennifer Merritt MD [address] [place] [phone] PCP - General Internal Medicine 01/07/24
[2024-05-31] MEDS: predniSONE 20 MG TABLET 40 MG PO (19:20)
[2024-05-31 19:32] VITALS: BP 103/54; PULSE 72; RESP 20; TEMP 36.6; O2SAT 100
--- NOTE | 2024-05-31 19:45 | MHC.EDTECH ---
applesauce given to pt per request
--- NOTE | 2024-05-31 20:21 | ED_ITS ---
HPI - General Adult General Chief complaint: Allergic Reaction Stated complaint: Mild allergic reaction to peanuts, 50mg benadryl Time Seen by Provider: 05/31/24 19:09 Source: patient Limitations: no limitations History of Present Illness ED Provider: Nichole Ramirez PA-C HPI narrative: 23-year-old female with peanut allergy presents with a allergic reaction. Patient states she was eating almost and she noticed that there was peanut oil in the ingredients. She started to develop a raspy voice. She was given 50 mg of Benadryl and 500 mL of normal saline pre arrival via EMS. Patient states she did not have her EpiPen on her at that time. Denies dyspnea, nausea vomiting diarrhea, angioedema, tongue swelling, dysphagia, odynophagia. Patient's symptoms are improved since she has a arrived. Related Data Previous Rx's ?Medication ?Instructions ?Recorded prednisone 5 mg tablets in a dose 5 mg PO DIRECTED #48 ea 05/31/24 pack Allergies Allergy/AdvReac Type Severity Reaction Status Date / Time peanut Allergy Difficulty Verified 05/31/24 17:05 Swallowing Penicillins Allergy Unknown Verified 12/11/23 09:28 Review of Systems Review of Systems: Yes all other systems are reviewed and are negative Constitutional: Constitutional: Denies fatigue and Denies fever(s) ENT: Denies odynophagia and Denies sore throat Cardiovascular: Cardiovascular: Denies chest pain and Denies dyspnea Respiratory: Respiratory: Denies dyspnea and Denies stridor Gastrointestinal: Gastrointestinal: Denies odynophagia Endocrine: Endocrine: Denies fatigue [facility] Past Medical History Attestation statement: The following information was validated with the patient. Medical History Migraine Social History Social History (Updated 12/11/23 @ 10:06 by Lyla Schilling DO) Patient Tobacco Use Status: Never used Tobacco Smoked in Last 30 Days: No Use of substances other than those prescribed or required for medical reasons: No Advance Directives: No Advance Directives Information Provided: No Patient : No Physical Exam ED Vital Signs: Vital Signs - 24 hr 05/31/24 16:54 05/31/24 19:32 Temperature 98.2 F 97.8 F Pulse Rate 74 72 Respiratory Rate 18 20 Blood Pressure 119/56 L 103/54 L Pulse Oximetry 98 100 Oxygen Delivery Method Room Air Room Air BMI result Body Mass Index 43.5 Const Other: Alert Orientation/consciousness: patient oriented x3 HENMT Other: no angioedema, tongue is not swollen uvula midline it was not cyanotic nor edematous, no facial swelling no stridor Resp Effort & Inspection: normal respiratory effort Cardio Other: normal peripheral perfusion Skin Other: warm dry no rash Neuro General: patient oriented x3, gait normal, no focal motor deficits and CN's II- XI intact bilaterally Psych Other: cooperative Medications Administered Discontinued Medications Generic Name Dose Route Start Last Admin Trade Name Marie PRN Reason Stop Dose Admin Prednisone 40 mg 05/31/24 19:10 05/31/24 19:20 Prednisone 20 Mg Tablet PO 05/31/24 19:11 40 mg ONCE ONE Administration Medical Decision Making Medical Decision Making MDM Narrative: 23-year-old female with peanut allergy presents with a allergic reaction. Patient states she was eating almost and she noticed that there was peanut oil in the ingredients. She started to develop a raspy voice. She was given 50 mg of Benadryl and 500 mL of normal saline pre arrival via EMS. Patient states she did not have her EpiPen on her at that time. Denies dyspnea, nausea vomiting diarrhea, angioedema, tongue swelling, dysphagia, odynophagia. Patient's symptoms are improved since she has a arrived. problem: Peanut allergy History: Per patient I have considered the following differential diagnoses: Anaphylaxis, urticaria, angioedema, allergic reaction Plan: Patient here with a mild reaction, she has not, at this point she has already been here 2 hours. We will be giving steroid we will send with a steroid taper, she has a an EpiPen prescription. Discharge Plan Discharge Clinical Impression: Allergic reaction to peanut Patient Disposition: Home, Self-Care Instructions: Food Allergy (ED) Additional Instructions: you are being treated for an allergic reaction. You did not have progression of your reaction you were monitored for 3 hours. You received a dose of steroid. I am sending you with a steroid taper. Begin it tomorrow morning. Keep your EpiPen with you at all times. If you develop a similar reaction, administer the EpiPen to yourself, then seek medical attention. Follow up with primary care as needed. You can use [id number] Zyrtec, if you develop hives at home. Prescriptions: New prednisone 5 mg tablets,dose pack 5 mg PO DIRECTED Qty: 48 0RF Rx Instructions: see taper instructions Stand Alone Forms: Work/School Release Print Language: Amharic
[2024-05-31 20:59] VITALS: BP 103/54; PULSE 72; RESP 20; TEMP 36.6; O2SAT 100
== END 2024-05-31 20:59 | disposition home or self-care (01) ==
PROVIDERS: Emergency Provider Emergency Medicine; PCP Internal Medicine
DX: T78.1XXA Other adverse food reactions, not elsewhere classified, initial encounter (principal); R07.89 Other chest pain; R94.31 Abnormal electrocardiogram [ECG] [EKG]; X58.XXXA Exposure to other specified factors, initial encounter
CPT/HCPCS: 93005; 99283; 99284

== ENCOUNTER → 2024-05-31 17:53 | Outpatient (BNV) | payer OTHER, SELFPAY | PROVIDERS: Emergency Provider Emergency Medicine; PCP Internal Medicine; Visit Provider Internal Medicine | DX: R94.31 Abnormal electrocardiogram [ECG] [EKG] (principal); R07.9 Chest pain, unspecified | CPT/HCPCS: 93010 ==